=== PATIENT | female | born 1980 | race Caucasian/White ===

== ENCOUNTER → 2018-02-05 | Outpatient (CLI) | payer OTHER ==
[~2018-02-05] MED LIST: BASAGLAR K100 UNIT/1; BASAGLAR K100 UNIT/1 SC; CEPH500 PO; CLIN300 PO; CYCL10 PO; Cipro500 MG PO; Lisinopril2.5 MG; Naprosyn500 MG PO; Norco 5-325 Ta1 EACH PO; Novolog100 UNIT/2 SS; ORTHO MICRONO0.35 MG PO; VITAMIN D50000 UNIT PO; Valium5 MG PO
== END ==
LOC: LAB 15:50
DX: L02.416 Cutaneous abscess of left lower limb (principal)
CPT/HCPCS: 87070; 87075; 87076; 87077; 87205

== ENCOUNTER 2020-07-20 19:01 | Inpatient (IN) | payer OTHER ==
[~2020-07-20] VITALS: Ht 170.2 cm; Wt 106.6 kg
[2020-07-20 19:42] LABS: BASOPHILS ABSOLUTE AUTO 0.04 K/mm3 (0.00-0.23); BASOPHILS PERCENT AUTO 0 % (0-2); EOSINOPHILS ABSOLUTE AUTO 0.04 K/mm3 (0.00-0.68); EOSINOPHILS PERCENT AUTO 0 % (0-6); Hemoglobin 15.1 g/dL (11.5-16.0); IMMATURE GRAN ABSOLUTE AUTO 0.05 K/mm3 (0.00-0.10); IMMATURE GRAN PERCENT AUTO 0 % (0-1); LYMPHOCYTES PERCENT AUTO 23 % (21-46); MONOCYTES PERCENT AUTO 6 % (4-13); Mean Corpuscular HGB 29.4 pg (26.0-34.0); Mean Corpuscular HGB Conc 35.1 g/dL (31.5-36.5); Mean Corpuscular Volume 84 fL (80-100); Mean Platelet Volume 9.9 fL (9.1-12.4); NEUTROPHILS ABSOLUTE AUTO 10.56 K/mm3 (1.96-9.15); NEUTROPHILS PERCENT AUTO 70 % (41-73); Platelet Count 268 K/mm3 (150-400); RDW Coefficient Variation 12.6 % (11.7-14.2); RDW Standard Deviation 38.2 fL (35.1-46.3); Red Blood Cell Count 5.13 M/mm3 (3.80-5.20); White Blood Cell Count 14.99 K/mm3 (4.00-11.30)
[2020-07-20 20:03] LABS: Alanine Aminotransfer (ALT/SGP 41 U/L (12-78); Albumin/Globulin Ratio 0.8 (0.8-1.8); Alk Phos 103 U/L (50-136); Anion Gap 11 mmol/L (6-16); Aspartate Aminotrans (AST/SGOT 11 U/L (12-37); Bilirubin, Total 0.8 mg/dL (0.1-1.0); Blood Urea Nitrogen 8 mg/dL (8-24); Bun/Creatinine Ratio 16.7 (12.0-20.0); CO2, Blood 19 mmol/L (21-32); Calcium, Blood 9.3 mg/dL (8.5-10.1); Chloride, Blood 107 mmol/L (98-108); Creatinine, Blood 0.48 mg/dL (0.40-1.00); Globulin, Blood 4.8 g/dL (2.2-4.0); Glomerular Filtration Rate >60 (60-); Glucose, Blood 215 mg/dL (70-99); Potassium, Blood 3.5 mmol/L (3.5-5.5); Sodium, Blood 137 mmol/L (136-145); Total Protein, Blood 8.8 g/dL (6.4-8.2)
[2020-07-20 20:23] LABS: Source, Urine Clean Catch
[2020-07-20 20:30] LABS: Bilirubin, Urine Neg (Neg); Blood, Urine 3+ (Neg); Glucose Qualitative, Urine 1+ (Neg); Ketones, Urine 1+ (Neg); Leukocyte Esterase, Urine 3+ (Neg); Nitrite, Urine Pos (Neg); Protein, Urine 2+ (Neg); Urobilinogen, Urine NORM (Normal)
[2020-07-20 20:38] LABS: Appearance, Urine Hazy (Clear); Bacteria Many /hpf; Color, Urine Yellow (P-Yellow); Squamous Epithelial Cells Mod /hpf (Few); White Blood Cells, Urine 25-50 /hpf (0-5)
[2020-07-20 20:39] LABS: Mucus Light (0-Heavy)
[2020-07-20 22:06] LABS: International Normalized Ratio 0.97; Prothrombin Time Results 10.4 Sec (9.7-11.5)
[2020-07-21 00:29] LABS: BASOPHILS ABSOLUTE AUTO 0.04 K/mm3 (0.00-0.23); BASOPHILS PERCENT AUTO 0 % (0-2); EOSINOPHILS ABSOLUTE AUTO 0.15 K/mm3 (0.00-0.68); EOSINOPHILS PERCENT AUTO 1 % (0-6); Hematocrit 40.3 % (33.0-51.0); Hemoglobin 13.6 g/dL (11.5-16.0); IMMATURE GRAN ABSOLUTE AUTO 0.04 K/mm3 (0.00-0.10); IMMATURE GRAN PERCENT AUTO 0 % (0-1); LYMPHOCYTES PERCENT AUTO 24 % (21-46); MONOCYTES ABSOLUTE AUTO 0.96 K/mm3 (0.16-1.47); MONOCYTES PERCENT AUTO 8 % (4-13); Mean Corpuscular HGB 29.3 pg (26.0-34.0); Mean Corpuscular HGB Conc 33.7 g/dL (31.5-36.5); Mean Corpuscular Volume 87 fL (80-100); Mean Platelet Volume 9.5 fL (9.1-12.4); NEUTROPHILS ABSOLUTE AUTO 7.66 K/mm3 (1.96-9.15); NEUTROPHILS PERCENT AUTO 66 % (41-73); Platelet Count 232 K/mm3 (150-400); RDW Coefficient Variation 12.8 % (11.7-14.2); RDW Standard Deviation 40.2 fL (35.1-46.3); Red Blood Cell Count 4.64 M/mm3 (3.80-5.20); White Blood Cell Count 11.65 K/mm3 (4.00-11.30)
[2020-07-21 00:42] LABS: Source, Urine Catheter
[2020-07-21 00:48] LABS: Alanine Aminotransfer (ALT/SGP 33 U/L (12-78); Albumin, Blood 3.4 g/dL (3.4-5.0); Albumin/Globulin Ratio 0.9 (0.8-1.8); Alk Phos 92 U/L (50-136); Anion Gap 7 mmol/L (6-16); Aspartate Aminotrans (AST/SGOT 11 U/L (12-37); Bilirubin, Total 0.8 mg/dL (0.1-1.0); Blood Urea Nitrogen 9 mg/dL (8-24); Bun/Creatinine Ratio 13.4 (12.0-20.0); CO2, Blood 25 mmol/L (21-32); Calcium, Blood 8.5 mg/dL (8.5-10.1); Chloride, Blood 109 mmol/L (98-108); Creatinine, Blood 0.67 mg/dL (0.40-1.00); Globulin, Blood 3.9 g/dL (2.2-4.0); Glomerular Filtration Rate >60 (60-); Glucose, Blood 189 mg/dL (70-99); Potassium, Blood 3.5 mmol/L (3.5-5.5); Sodium, Blood 141 mmol/L (136-145); Total Protein, Blood 7.3 g/dL (6.4-8.2)
[2020-07-21 00:51] LABS: Appearance, Urine Cloudy (Clear); Bilirubin, Urine Neg (Neg); Blood, Urine 3+ (Neg); Color, Urine Yellow (P-Yellow); Glucose Qualitative, Urine Neg (Neg); Ketones, Urine 1+ (Neg); Leukocyte Esterase, Urine 3+ (Neg); Nitrite, Urine Pos (Neg); Protein, Urine 2+ (Neg); Specific Gravity, Urine 1.015 (1.003-1.022); Urobilinogen, Urine 1+ (Normal); pH, Urine 6.5 (5.0-8.0)
[2020-07-21 00:56] LABS: Bacteria Many /hpf; Red Blood Cells, Urine 0-2 /hpf (0-2); Squamous Epithelial Cells Few /hpf (Few); White Blood Cells, Urine TNTC /hpf (0-5)
--- NOTE | 2020-07-21 04:19 | NUR ---
SHIFT SUMMARY NEW ADMIT THIS SHIFT. AAOX4. DISCOMFORT CONTROLLED WITH TORADOL X1. NO NAUSEA/EMESIS. SWELLING TO GROIN INCREASED OVER THE LAST 24 HRS. IVF + ABX INFUSING PER ORDERS. LACTIC ACID WNL THIS AM. PT ORIENTED TO ROOM + CALL LIGHT USE. PT RESTING WELL AT THIS TIME WITH CALL LIGHT IN REACH.
--- NOTE | 2020-07-21 09:07 | NUR ---
PT C/O "THICK, SLIMEY, GREEN/BROWN" VAGINAL DISCHARGE-STATES IT WAS ENOUGH TO BE NOTICABLE ON WASHCLOTH. ASSESSMENT DONE, VAGINAL AREA APPEARS SWOLLEN AND RED, TENDER WITH TOUCH. NO DISCHARGE NOTED AT THIS TIME. PT STATES THE PAIN/SWELLING IS WHAT BROUGHT HER TO THE HOSPITAL.
--- NOTE | 2020-07-21 19:09 | NUR ---
SHIFT SUMMARY PT WAS FOUND TO HAVE BLISTER LIKE LESIONS BILATERAL LABIA VERY RED/INFLAMMED/SWOLLEN AT APROX 1300-MD IN ROOM DOING EXAM AT THAT TIME. STI TESTING COLLECTED-AWAITING RESULTS. IV ABX AND PAIN MEDICATION PER EMAR.
--- NOTE | 2020-07-22 04:20 | NUR ---
SHIFT SUMMARY: PT A&O X4. VS WNL. UPON ASSESSMENT, PT NOTED TO HAVE WHITISH LESIONS TO THE INSIDE OF BILATERAL LABIA. LABIA SWOLLEN, RED AND WARM TO TOUCH. PT USING ICE PACK FOR COMFORT. MEDICATED WITH TORADOL PER EMAR. PT REPORTS BURNING POST VOID. ALSO REPORTS URGENCY. URINE YELLOW AND CLOUDY. VOIDING ADEQUATE AMOUNT. IVF AND IV ABX INFUSING PER EMAR. PT CURRENTLY RESTING. AWAITING STD PANEL AND HSV RESULTS.
[2020-07-22 05:33] LABS: BASOPHILS ABSOLUTE AUTO 0.04 K/mm3 (0.00-0.23); BASOPHILS PERCENT AUTO 1 % (0-2); EOSINOPHILS ABSOLUTE AUTO 0.27 K/mm3 (0.00-0.68); EOSINOPHILS PERCENT AUTO 3 % (0-6); Hematocrit 40.2 % (33.0-51.0); Hemoglobin 13.4 g/dL (11.5-16.0); IMMATURE GRAN ABSOLUTE AUTO 0.03 K/mm3 (0.00-0.10); IMMATURE GRAN PERCENT AUTO 0 % (0-1); LYMPHOCYTES ABSOLUTE AUTO 2.09 K/mm3 (0.84-5.20); LYMPHOCYTES PERCENT AUTO 26 % (21-46); MONOCYTES ABSOLUTE AUTO 0.73 K/mm3 (0.16-1.47); MONOCYTES PERCENT AUTO 9 % (4-13); Mean Corpuscular HGB 29.5 pg (26.0-34.0); Mean Corpuscular HGB Conc 33.3 g/dL (31.5-36.5); Mean Corpuscular Volume 89 fL (80-100); Mean Platelet Volume 9.8 fL (9.1-12.4); NEUTROPHILS PERCENT AUTO 61 % (41-73); Platelet Count 211 K/mm3 (150-400); RDW Coefficient Variation 12.4 % (11.7-14.2); RDW Standard Deviation 40.7 fL (35.1-46.3); Red Blood Cell Count 4.54 M/mm3 (3.80-5.20); White Blood Cell Count 8.06 K/mm3 (4.00-11.30)
[2020-07-22 06:04] LABS: Albumin, Blood 2.9 g/dL (3.4-5.0); Anion Gap 7 mmol/L (6-16); Blood Urea Nitrogen 9 mg/dL (8-24); Bun/Creatinine Ratio 15.2 (12.0-20.0); CO2, Blood 24 mmol/L (21-32); Calcium, Blood 8.5 mg/dL (8.5-10.1); Chloride, Blood 110 mmol/L (98-108); Creatinine, Blood 0.59 mg/dL (0.40-1.00); Glomerular Filtration Rate >60 (60-); Glucose, Blood 195 mg/dL (70-99); Phosphorus, Blood 3.9 mg/dL (2.5-4.9); Potassium, Blood 3.7 mmol/L (3.5-5.5); Sodium, Blood 141 mmol/L (136-145)
--- NOTE | 2020-07-22 17:57 | NUR ---
SUMMARY NO ACUTE CHANGES T/O SHIFT. DR RODRIGUEZ IN TO SEE PT THIS EVENING; ORDERS OBTAINED. IV ABX INFUSING PER ORDERS. PROVIDED ICE PACKS T/O SHIFT FOR COMFORT TO DENNIS AREA. MEDICATED PER ORDERS FOR PAIN. COVERED CBGS PER ORDERS. PT INDEPENDENT IN ROOM. CALL LIGHT IN REACH.
--- NOTE | 2020-07-23 05:52 | NUR ---
SHIFT SUMMARY LYING ON LEFT SIDE WITH EYES CLOSED. MEDICATED FOR PAIN PER MD ORDERS. ABLE TO AMBULATE TO COMMODE WITHOUT ASSISTACE. CONTINUES TO HAVE VAGINAL DISCHARGE. DENIES PAIN, DISCOMFORT, OR FURTHER NEEDS AT THIS TIME. SAFETY MEASURES IN PLACE. WILL CONTINUE TO MONITOR AND GIVE HAND OFF TO ONCOMING SHIFT USING SBAR DURING BEDSIDE REPORT.
[2020-07-23 08:11] LABS: HIV SCREEN 4TH GENERATION WRFX Non Reactive (Non Reactive)
--- NOTE | 2020-07-23 19:10 | NUR ---
SUMMARY NO ACUTE CHANGES T/O SHIFT. MEDICATED PER ORDERS FOR PAIN. PT INDEPENDENT IN ROOM. CALL LIGHT IN REACH.
[2020-07-23 21:35] LABS: Vancomycin, Trough 11.6 ug/mL (5.0-10.0)
[2020-07-24 05:10] LABS: CHLAMYDIA BY NAA Negative (Negative); GONOCOCCUS BY NAA Negative (Negative); TRICH VAG BY NAA Negative (Negative)
--- NOTE | 2020-07-24 05:55 | NUR ---
SUMMARY PT VERB EFFECTIVE PAIN CONTROL WITH PO MEDS AND SILVADENE. SLEEPING AT THIS TIME.
--- NOTE | 2020-07-24 17:46 | NUR ---
SUMMARY PT REPORTS PAIN IS CONSIDERABLY LESS THAN WHEN ADMITTED AND IS ADEQUATELY CONTROLLED WITH PO MEDS. PT IS HOPING TO DISCHARGE TO HOME IN AM. WOLF PO FOOD AND FLUIDS WITHOUT NAUSEA
[2020-07-25 05:01] LABS: Hematocrit 43.6 % (33.0-51.0); Hemoglobin 14.3 g/dL (11.5-16.0); Mean Corpuscular HGB 29.2 pg (26.0-34.0); Mean Corpuscular HGB Conc 32.8 g/dL (31.5-36.5); Mean Corpuscular Volume 89 fL (80-100); Mean Platelet Volume 9.6 fL (9.1-12.4); Platelet Count 287 K/mm3 (150-400); RDW Coefficient Variation 12.3 % (11.7-14.2); RDW Standard Deviation 40.6 fL (35.1-46.3); White Blood Cell Count 7.76 K/mm3 (4.00-11.30)
[2020-07-25 05:22] LABS: Anion Gap 4 mmol/L (6-16); Blood Urea Nitrogen 8 mg/dL (8-24); Bun/Creatinine Ratio 16.1 (12.0-20.0); CO2, Blood 24 mmol/L (21-32); Calcium, Blood 8.9 mg/dL (8.5-10.1); Chloride, Blood 110 mmol/L (98-108); Glomerular Filtration Rate >60 (60-); Glucose, Blood 146 mg/dL (70-99); Potassium, Blood 3.8 mmol/L (3.5-5.5); Sodium, Blood 138 mmol/L (136-145)
[2020-07-25 06:02] LABS: BAND PERCENT MAN 1 % (0-8); BASOPHILS PERCENT MAN 0 % (0-2); EOSINOPHILS ABSOLUTE MAN 0.23 K/mm3 (0.00-0.68); EOSINOPHILS PERCENT MAN 3 % (0-6); LYMPHOCYTES % ATYPICAL MANUAL 4 % (0-0); LYMPHOCYTES ABSOLUTE MAN 4.19 K/mm3 (0.84-5.20); LYMPHOCYTES PERCENT MAN 50 % (21-46); MONOCYTES ABSOLUTE MAN 0.31 K/mm3 (0.16-1.47); MONOCYTES PERCENT MAN 4 % (4-13); NEUTROPHILS ABSOLUTE MAN 3.02 K/mm3 (1.96-9.15); SEG NEUTROPHILS PERCENT MAN 38 % (41-73); TOTAL CELLS COUNTED 100
[2020-07-25] MEDS ORDERED: ACET325 PO (08:54)
[2020-07-25] MEDS ORDERED: ACYC200 PO (08:55)
[2020-07-25] MEDS ORDERED: CEFP200 PO (08:55)
[2020-07-25] MEDS ORDERED: IBUP600 PO (08:56)
[2020-07-25] MEDS ORDERED: FAMO20 PO (08:56)
[2020-07-25] MEDS ORDERED: ONDA4ODT PO (08:57)
[2020-07-25] MEDS ORDERED: Silvadene20 GM TOP (08:57)
--- NOTE | 2020-07-25 11:29 | NUR ---
DISCHARGE PT DISCHARGED HOME FROM UNIT AT APROX 1130. PT GIVEN WRITTEN AND VERBAL DISCHARGE INFORMATION AND VERBALIZED UNDERSTANDING OF THESE INSTRUCTIONS. IV REMOVED, PT TOLERATED WELL. NEW PERSCRIPTIONS FAXED TO [facility]. WHEELCHAIR TO CAR.
[2020-07-26 05:09] LABS: HSV-1 DNA Negative (Negative); HSV-2 DNA Positive (Negative)
== END 2020-07-25 11:31 | disposition home or self-care (01) | DRG 872 ==
LOC: ER 19:01 → SURS 21:44 → EDBEDREQ 22:36 → EDBEDREQSVC 22:36 → SURS 23:09
PROVIDERS: Internal Medicine; Obstetrics & Gynecology; Physician Assistant; ADMIT Family Medicine
DX: A41.51 Sepsis due to Escherichia coli [E. coli] (principal); L03.314 Cellulitis of groin; N39.0 Urinary tract infection, site not specified; A60.04 Herpesviral vulvovaginitis; Z20.828 Contact with and (suspected) exposure to other viral communicable diseases; E11.9 Type 2 diabetes mellitus without complications; E66.01 Morbid (severe) obesity due to excess calories; R65.20 Severe sepsis without septic shock; A55 Chlamydial lymphogranuloma (venereum); B95.1 Streptococcus, group B, as the cause of diseases classified elsewhere; Z68.36 Body mass index [BMI] 36.0-36.9, adult; Z87.891 Personal history of nicotine dependence
CPT/HCPCS: 36415; 72193; 80048; 80053; 80069; 80202; 81001; 82947; 83036; 83605; 83690; 85025; 85610; 85730; 86592; 87040; 87070; 87077; 87086; 87147; 87186; 87205; 87389; 87491; 87529; 87591; 87661; 93005; 93010; 96361; 96365; 96375; 99284-25; A9270; A9270-GY; J0133; J0696; J1170; J1650; J1885; J1956; J2405; J3370; J7030; J7050; Q9967

== ENCOUNTER → 2020-09-23 | Outpatient (CLI) | payer OTHER ==
[~2020-09-23] MED LIST changes: +ACET325 PO; +ACYC200 PO; +CEFP200 PO; +FAMO20 PO; +IBUP600 PO; +ONDA4ODT PO; +Silvadene20 GM TOP
[2020-09-24 18:10] LABS: HPV 16 Negative (Negative); HPV 18 Negative (Negative); HPV OTHER HR TYPES Positive (Negative)
== END ==
LOC: LAB SHORT 14:50 → LAB 14:50
PROVIDERS: Obstetrics & Gynecology
DX: Z01.419 Encounter for gynecological examination (general) (routine) without abnormal findings (principal)
CPT/HCPCS: 87624; 87625; G0123

== ENCOUNTER → 2020-10-07 | Outpatient (CLI) | payer OTHER ==
[2020-10-07 12:33] LABS: Source, Urine Clean Catch
[2020-10-07 17:47] LABS: Bilirubin, Urine Neg (Neg); Nitrite, Urine Neg (Neg); Urobilinogen, Urine NORM (Normal)
[2020-10-07 17:51] LABS: Appearance, Urine Cloudy (Clear); Color, Urine Yellow (P-Yellow)
[2020-10-07 18:42] LABS: Specific Gravity, Urine 1.025 (1.003-1.022)
[2020-10-07 18:43] LABS: Blood, Urine 3+ (Neg); Glucose Qualitative, Urine 4+ (Neg); Ketones, Urine 1+ (Neg); Leukocyte Esterase, Urine 3+ (Neg); Protein, Urine 2+ (Neg)
[2020-10-07 18:44] LABS: White Blood Cells, Urine TNTC /hpf (0-5)
[2020-10-07 18:45] LABS: Bacteria Many /hpf; Squamous Epithelial Cells Few /hpf (Few)
== END ==
LOC: LAB SHORT 11:59 → LAB 11:59
PROVIDERS: Obstetrics & Gynecology
DX: N39.3 Stress incontinence (female) (male) (principal)
CPT/HCPCS: 81001; 87077; 87086; 87147; 87186

== ENCOUNTER 2021-12-14 20:42 | Emergency (ER) | payer OTHER ==
[~2021-12-14] VITALS: Ht 167.6 cm; Wt 101.6 kg
[2021-12-14 21:19] LABS: BASOPHILS ABSOLUTE AUTO 0.03 K/mm3 (0.00-0.23); BASOPHILS PERCENT AUTO 0 % (0-2); EOSINOPHILS ABSOLUTE AUTO 0.01 K/mm3 (0.00-0.68); EOSINOPHILS PERCENT AUTO 0 % (0-6); Hematocrit 45.7 % (33.0-51.0); Hemoglobin 16.4 g/dL (11.5-16.0); IMMATURE GRAN ABSOLUTE AUTO 0.07 K/mm3 (0.00-0.10); IMMATURE GRAN PERCENT AUTO 1 % (0-1); LYMPHOCYTES PERCENT AUTO 23 % (21-46); MONOCYTES ABSOLUTE AUTO 0.94 K/mm3 (0.16-1.47); MONOCYTES PERCENT AUTO 6 % (4-13); Mean Corpuscular HGB 29.2 pg (26.0-34.0); Mean Corpuscular HGB Conc 35.9 g/dL (31.5-36.5); Mean Corpuscular Volume 81 fL (80-100); Mean Platelet Volume 9.8 fL (9.1-12.4); NEUTROPHILS ABSOLUTE AUTO 10.75 K/mm3 (1.96-9.15); NEUTROPHILS PERCENT AUTO 70 % (41-73); Platelet Count 367 K/mm3 (150-400); RDW Coefficient Variation 12.7 % (11.7-14.2); RDW Standard Deviation 37.5 fL (35.1-46.3); Red Blood Cell Count 5.62 M/mm3 (3.80-5.20)
[2021-12-14 21:55] LABS: Alanine Aminotransfer (ALT/SGP 34 U/L (12-78); Albumin, Blood 4.5 g/dL (3.4-5.0); Albumin/Globulin Ratio 1.1 (0.8-1.8); Alk Phos 108 U/L (50-136); Anion Gap 13 mmol/L (6-16); Aspartate Aminotrans (AST/SGOT 15 U/L (12-37); Bilirubin, Total 1.2 mg/dL (0.1-1.0); Blood Urea Nitrogen 21 mg/dL (8-24); Bun/Creatinine Ratio 33.5 (12.0-20.0); CO2, Blood 23 mmol/L (21-32); Calcium, Blood 10.4 mg/dL (8.5-10.1); Chloride, Blood 98 mmol/L (98-108); Creatinine, Blood 0.63 mg/dL (0.40-1.00); Globulin, Blood 4.2 g/dL (2.2-4.0); Glomerular Filtration Rate >60 (60-); Glucose, Blood 331 mg/dL (70-99); Potassium, Blood 3.4 mmol/L (3.5-5.5); Sodium, Blood 134 mmol/L (136-145); Total Protein, Blood 8.7 g/dL (6.4-8.2)
[2021-12-14 22:40] LABS: Source, Urine Clean Catch
[2021-12-14 23:16] LABS: Bilirubin, Urine Neg (Neg); Blood, Urine 1+ (Neg); Glucose Qualitative, Urine 4+ (Neg); Ketones, Urine 4+ (Neg); Leukocyte Esterase, Urine 1+ (Neg); Nitrite, Urine Pos (Neg); Protein, Urine 3+ (Neg); Specific Gravity, Urine 1.025 (1.003-1.022); Urobilinogen, Urine 1+ (Normal)
[2021-12-14 23:49] LABS: Appearance, Urine Cloudy (Clear); Color, Urine Yellow (P-Yellow)
[2021-12-14 23:51] LABS: Bacteria Many /hpf; Squamous Epithelial Cells Mod /hpf (Few)
[2021-12-14 23:52] LABS: Mucus Light (0-Heavy)
[2021-12-15] MEDS ORDERED: PROM12.5S PR (00:20)
[2021-12-15] MEDS ORDERED: SULTRIDS PO (00:20)
[2021-12-15] MEDS ORDERED: HUMALOG100 UNIT/1 SC (00:20)
[2021-12-15] MEDS ORDERED: METO10 PO (00:20)
[2021-12-15] MEDS ORDERED: BASAGLAR K100 UNIT/1 SC (00:20)
== END 2021-12-15 00:40 | disposition home or self-care (01) ==
LOC: ER 20:42
PROVIDERS: Physician Assistant; Student in an Organized Health Care Education/Training Program
DX: N12 Tubulo-interstitial nephritis, not specified as acute or chronic (principal); E11.65 Type 2 diabetes mellitus with hyperglycemia; E87.6 Hypokalemia; E86.0 Dehydration; Z88.0 Allergy status to penicillin; F17.210 Nicotine dependence, cigarettes, uncomplicated
CPT/HCPCS: 36415; 74176; 80053; 81001; 82947; 83690; 85025; 87077; 87086; 87186; 96374; 96375; 99284-25; A9270; J1885; J2405; J2765; J7030

== ENCOUNTER 2023-01-14 12:02 | Emergency (ER) | payer OTHER ==
[~2023-01-14] VITALS: Ht 167.6 cm; Wt 99.8 kg
[~2023-01-14 12:02] MED LIST changes: -HUMALOG KW100 UNIT/1 SC; -[UNRECOGNIZED DRUG - SUPPLY]
[2023-01-14 13:00] LABS: BASOPHILS ABSOLUTE AUTO 0.02 K/mm3 (0.00-0.23); BASOPHILS PERCENT AUTO 0 % (0-2); EOSINOPHILS ABSOLUTE AUTO 0.01 K/mm3 (0.00-0.68); EOSINOPHILS PERCENT AUTO 0 % (0-6); Hematocrit 45.8 % (33.0-51.0); Hemoglobin 16.4 g/dL (11.5-16.0); IMMATURE GRAN ABSOLUTE AUTO 0.07 K/mm3 (0.00-0.10); IMMATURE GRAN PERCENT AUTO 0 % (0-1); LYMPHOCYTES ABSOLUTE AUTO 3.21 K/mm3 (0.84-5.20); LYMPHOCYTES PERCENT AUTO 18 % (21-46); MONOCYTES ABSOLUTE AUTO 0.84 K/mm3 (0.16-1.47); MONOCYTES PERCENT AUTO 5 % (4-13); Mean Corpuscular HGB 29.4 pg (26.0-34.0); Mean Corpuscular HGB Conc 35.8 g/dL (31.5-36.5); Mean Corpuscular Volume 82 fL (80-100); Mean Platelet Volume 10.1 fL (9.1-12.4); NEUTROPHILS ABSOLUTE AUTO 13.67 K/mm3 (1.96-9.15); NEUTROPHILS PERCENT AUTO 77 % (41-73); Platelet Count 286 K/mm3 (150-400); RDW Coefficient Variation 12.2 % (11.7-14.2); RDW Standard Deviation 36.5 fL (35.1-46.3); Red Blood Cell Count 5.58 M/mm3 (3.80-5.20); White Blood Cell Count 17.82 K/mm3 (4.00-11.30)
[2023-01-14 13:09] LABS: Albumin, Blood 4.4 g/dL (3.4-5.0); Bilirubin, Total 1.2 mg/dL (0.1-1.0); Bun/Creatinine Ratio 36.7 (12.0-20.0); Calcium, Blood 9.8 mg/dL (8.5-10.1); Creatinine, Blood 0.87 mg/dL (0.40-1.00); Globulin, Blood 4.4 g/dL (2.2-4.0); Magnesium, Blood 2.1 mg/dL (1.6-2.4); Potassium, Blood 3.4 mmol/L (3.5-5.5); Total Protein, Blood 8.8 g/dL (6.4-8.2)
[2023-01-14 13:15] LABS: Influenza A, PCR NEGATIVE (NEGATIVE); Influenza B, PCR NEGATIVE (NEGATIVE); Resp Syncytial Virus, PCR NEGATIVE (NEGATIVE); SARS-Cov-2 (COVID-19) PCR, MMC NEGATIVE (NEGATIVE)
[2023-01-14] MEDS ORDERED: ONDA4 PO (20:34)
[2023-01-14] MEDS ORDERED: HUMALOG KW100 UNIT/1 SC (20:34)
[2023-01-14] MEDS ORDERED: [UNRECOGNIZED DRUG - SUPPLY] (20:34)
== END 2023-01-14 15:49 | disposition left against medical advice (07) ==
LOC: ER 12:02
PROVIDERS: Physician Assistant
DX: R06.02 Shortness of breath (principal); Z53.21 Procedure and treatment not carried out due to patient leaving prior to being seen by health care provider
CPT/HCPCS: 0241U; 36415; 80053; 83690; 83735; 84703; 85025

== ENCOUNTER → 2023-01-14 | Outpatient (CLI) | payer OTHER ==
[~2023-01-14] MED LIST changes: +CIPR500 PO; +HUMALOG KW100 UNIT/1 SC; +HUMALOG100 UNIT/1 SC; +METO10 PO; +ONDA4 PO; +PROM12.5S PR; +SULTRIDS PO; +[UNRECOGNIZED DRUG - SUPPLY]
[2023-01-14 14:57] LABS: BASOPHILS ABSOLUTE AUTO 0.04 K/mm3 (0.00-0.23); BASOPHILS PERCENT AUTO 0 % (0-2); EOSINOPHILS PERCENT AUTO 0 % (0-6); Hematocrit 47.2 % (33.0-51.0); Hemoglobin 16.9 g/dL (11.5-16.0); IMMATURE GRAN ABSOLUTE AUTO 0.09 K/mm3 (0.00-0.10); IMMATURE GRAN PERCENT AUTO 1 % (0-1); LYMPHOCYTES ABSOLUTE AUTO 2.77 K/mm3 (0.84-5.20); LYMPHOCYTES PERCENT AUTO 15 % (21-46); MONOCYTES ABSOLUTE AUTO 0.81 K/mm3 (0.16-1.47); MONOCYTES PERCENT AUTO 4 % (4-13); Mean Corpuscular HGB 29.6 pg (26.0-34.0); Mean Corpuscular HGB Conc 35.8 g/dL (31.5-36.5); Mean Corpuscular Volume 83 fL (80-100); Mean Platelet Volume 10.1 fL (9.1-12.4); NEUTROPHILS ABSOLUTE AUTO 15.29 K/mm3 (1.96-9.15); NEUTROPHILS PERCENT AUTO 80 % (41-73); Platelet Count 316 K/mm3 (150-400); RDW Coefficient Variation 12.6 % (11.7-14.2); RDW Standard Deviation 37.7 fL (35.1-46.3)
[2023-01-14 15:07] LABS: Albumin, Blood 4.7 g/dL (3.4-5.0); Bilirubin, Total 1.2 mg/dL (0.1-1.0); Calcium, Blood 10.3 mg/dL (8.5-10.1); Creatinine, Blood 1.25 mg/dL (0.40-1.00); Globulin, Blood 4.9 g/dL (2.2-4.0); Potassium, Blood 3.4 mmol/L (3.5-5.5); Total Protein, Blood 9.6 g/dL (6.4-8.2)
== END | disposition home or self-care (01) ==
LOC: LAB 14:51 → LAB SHORT 14:51
PROVIDERS: Physician Assistant
DX: R07.9 Chest pain, unspecified (principal)
CPT/HCPCS: 80053; 84484; 85025

== ENCOUNTER 2023-01-19 15:32 | Observation (INO) | payer OTHER ==
[~2023-01-19] VITALS: Ht 167.6 cm; Wt 95.9 kg
[~2023-01-19 15:32] MED LIST changes: +HUMALOG KW100 UNIT/1 SC; +[UNRECOGNIZED DRUG - SUPPLY]
[2023-01-19] MEDS ORDERED: ALOGLIPTIN25 M7 PO (15:57)
[2023-01-19] MEDS ORDERED: ATOR10 PO (15:58)
[2023-01-19] MEDS ORDERED: METO10 PO (15:59)
[2023-01-19 16:06] LABS: Hematocrit 44.8 % (33.0-51.0); Hemoglobin 16.4 g/dL (11.5-16.0); Mean Corpuscular HGB 29.4 pg (26.0-34.0); Mean Corpuscular HGB Conc 36.6 g/dL (31.5-36.5); Mean Corpuscular Volume 80 fL (80-100); Mean Platelet Volume 10.1 fL (9.1-12.4); Platelet Count 350 K/mm3 (150-400); RDW Standard Deviation 35.1 fL (35.1-46.3); Red Blood Cell Count 5.57 M/mm3 (3.80-5.20); White Blood Cell Count 20.61 K/mm3 (4.00-11.30)
[2023-01-19 16:30] LABS: Albumin, Blood 3.9 g/dL (3.4-5.0); Bilirubin, Total 1.1 mg/dL (0.1-1.0); Bun/Creatinine Ratio 32.6 (12.0-20.0); Calcium, Blood 9.6 mg/dL (8.5-10.1); Creatinine, Blood 1.38 mg/dL (0.40-1.00); Globulin, Blood 4.1 g/dL (2.2-4.0); Potassium, Blood 2.2 mmol/L (3.5-5.5)
[2023-01-19 16:33] LABS: BASOPHILS PERCENT MAN 0 % (0-2); EOSINOPHILS PERCENT MAN 1 % (0-6); LYMPHOCYTES ABSOLUTE MAN 7.41 K/mm3 (0.84-5.20); LYMPHOCYTES PERCENT MAN 36 % (21-46); MONOCYTES ABSOLUTE MAN 2.06 K/mm3 (0.16-1.47); MONOCYTES PERCENT MAN 10 % (4-13); NEUTROPHILS ABSOLUTE MAN 10.92 K/mm3 (1.96-9.15); SEG NEUTROPHILS PERCENT MAN 53 % (41-73); TOTAL CELLS COUNTED 100
[2023-01-19 16:46] LABS: Base Excess Venous 1.8 mmol/L; Bicarbonate Venous 25.2 mmol/L (24.0-30.0); PCO2 Venous 33.2 mmHg (38-42); pH Blood Venous 7.49 (7.34-7.37)
[2023-01-19 17:06] LABS: Beta-hydroxybutyrate 17.2 mg/dL (0.2-2.8)
--- NOTE | 2023-01-19 21:00 | NUR ---
ADMIT NOTE; THE PT ARRIVES FROM THE ED VIA ED GURNEY. THE PT IS ABLE TO AMBULATE FROM THE GURNEY TO THE BED WITH A 1 ASSIST. THE PT IS DIZZY UPON AMBULATION. THE PT IS AXO X4, BUT DOES HAVE A CHILD LIKE DEMEANOR AT TIMES. THE PT DENIES ANY PAIN, SOB OR CHEST PAIN/PRESSURE UPON ADMIT. POTASSIUM CHLORIDE IS INFUSING PER EMAR AT THE TIME OF ARRIVAL. THE PT APPEARS TO BE IN NO ACUTE DISTRESS UPON ADMIT. THE PT IS NAUSEOUS, BUT NO VOMITING UPON ADMIT.
--- NOTE | 2023-01-20 01:10 | NUR ---
CALLED ABOUT PTS POTASSIUM LEVEL OF 3.1, ONE TIME ORDER OF 40 MEQS OF POTASSIUM CHLORIDE ORDERED.
--- NOTE | 2023-01-20 04:17 | NUR ---
SHIFT SUMMARY; NO ACUTE CHANGES. THE PT IS AXO 4, CHILD LIKE AT TIMES. THE PT IS INDEPENDENT AT BASELINE BUT IS A 1 ASSIST THIS VISIT DUE TO RECENT SYNCOPAL EPISODES AND CONTINUES WEAKNESS AND DIZZINESS. THE PT HAD NAUSEA, VOMITED ONCE LAST NIGHT AFETR DRINIKING 2-16 OZ ICE ACUNA AND EATING 1/2 JELLO CUP. PHENERGAN GIVEN. TELE IS IN PLACE, NSR-SINUS TACH 90-100'S T/O THE NIGHT. NS AT 150MLS HR IS RUNNING CONCURRENTLY WITH KCL AT 67.5 MLS/HR THROUGH AN IV IN THE L AC. THE PT HAS BEEN SLEEPING ALMOST THE ENTIRE NIGHT. THE PT DENIES ANY PAIN, CHEST PAIN/PRESSURE OR SOB. CURRENTLY THE PT IS SLEEPING IN BED WITH THE BED IN THE LOWEST POSITION AND THE CALL LIGHT AT BEDSIDE.
[2023-01-20 06:05] LABS: BASOPHILS ABSOLUTE AUTO 0.05 K/mm3 (0.00-0.23); BASOPHILS PERCENT AUTO 0 % (0-2); EOSINOPHILS ABSOLUTE AUTO 0.24 K/mm3 (0.00-0.68); EOSINOPHILS PERCENT AUTO 2 % (0-6); Hematocrit 38.9 % (33.0-51.0); Hemoglobin 14.3 g/dL (11.5-16.0); IMMATURE GRAN ABSOLUTE AUTO 0.06 K/mm3 (0.00-0.10); IMMATURE GRAN PERCENT AUTO 1 % (0-1); LYMPHOCYTES ABSOLUTE AUTO 4.86 K/mm3 (0.84-5.20); LYMPHOCYTES PERCENT AUTO 39 % (21-46); MONOCYTES ABSOLUTE AUTO 0.92 K/mm3 (0.16-1.47); MONOCYTES PERCENT AUTO 7 % (4-13); Mean Corpuscular HGB 29.7 pg (26.0-34.0); Mean Corpuscular HGB Conc 36.8 g/dL (31.5-36.5); Mean Corpuscular Volume 81 fL (80-100); Mean Platelet Volume 10.1 fL (9.1-12.4); NEUTROPHILS ABSOLUTE AUTO 6.29 K/mm3 (1.96-9.15); NEUTROPHILS PERCENT AUTO 51 % (41-73); Platelet Count 263 K/mm3 (150-400); RDW Coefficient Variation 12.3 % (11.7-14.2); Red Blood Cell Count 4.81 M/mm3 (3.80-5.20); White Blood Cell Count 12.42 K/mm3 (4.00-11.30)
[2023-01-20 06:27] LABS: Albumin, Blood 3.1 g/dL (3.4-5.0); Albumin/Globulin Ratio 0.9 (0.8-1.8); Bilirubin, Total 0.9 mg/dL (0.1-1.0); Bun/Creatinine Ratio 54.7 (12.0-20.0); Calcium, Blood 8.4 mg/dL (8.5-10.1); Creatinine, Blood 0.68 mg/dL (0.40-1.00); Globulin, Blood 3.3 g/dL (2.2-4.0); Potassium, Blood 3.1 mmol/L (3.5-5.5); Total Protein, Blood 6.4 g/dL (6.4-8.2)
--- NOTE | 2023-01-20 17:12 | NUR ---
SHIFT SUMMARY- PT IS ALERT AND ORIENTED X4. PT CONTINUES TO HAVE N/V. 4 EPISODES OF DIARRHEA BEFORE. PT SHOWERED AND IS NOW RESTING COMFORTABLY. INDEPENDENT IN THE ROOM BUT WEAK. PT KNOWS LIMITATIONS AND WILL CALL WHEN NEEDED. BED IS THE LOWEST POSITION WITH CALL LIGHT IN REACH. PT HAS BEEN TOLORATATING FLUIDS BUT NO FOOD SO FAR
--- NOTE | 2023-01-21 04:35 | NUR ---
SHIFT SUMMARY NOC PT IS A/O X 4. PT DID NOT HAVE C/O N/V DURING SHIFT. PT WAS ABLE TO EAT AT DINNER SO CBG SWITCHED FROM Q6H TO AC/HS PER PROVIDER INSTRUCTIONS AND 2 UNITS WERE INDICATED FOR COVERAGE. PT IS ON TELE RUNNING SINUS RHYTHM @ 84 BPM. PT INDEPENDENT IN ROOM BUT USES CALL LIGHT WHEN AMBULATING TO BATHROOM DUE TO RECENT SYNCOPAL EPISODES. PT MAY DISHCHARGE TODAY IF PT APPETITE CONTINUES TO IMPROVE AND PT POTASSIUM LEVEL INCREASES FROM 3.1 AFTER PO POTASSIUM GIVEN ON 01/20/23. PT IS CURRENTLY RESTING WITH BED IN LOWEST POSITION, AND CALL LIGHT WITHIN REACH. WCTM.
[2023-01-21 05:30] LABS: BASOPHILS ABSOLUTE AUTO 0.06 K/mm3 (0.00-0.23); BASOPHILS PERCENT AUTO 1 % (0-2); EOSINOPHILS ABSOLUTE AUTO 0.27 K/mm3 (0.00-0.68); EOSINOPHILS PERCENT AUTO 3 % (0-6); Hemoglobin 13.3 g/dL (11.5-16.0); IMMATURE GRAN ABSOLUTE AUTO 0.04 K/mm3 (0.00-0.10); IMMATURE GRAN PERCENT AUTO 0 % (0-1); LYMPHOCYTES PERCENT AUTO 53 % (21-46); MONOCYTES ABSOLUTE AUTO 0.71 K/mm3 (0.16-1.47); MONOCYTES PERCENT AUTO 8 % (4-13); Mean Corpuscular HGB 29.8 pg (26.0-34.0); Mean Corpuscular HGB Conc 36.9 g/dL (31.5-36.5); Mean Corpuscular Volume 81 fL (80-100); Mean Platelet Volume 10.3 fL (9.1-12.4); NEUTROPHILS ABSOLUTE AUTO 3.44 K/mm3 (1.96-9.15); NEUTROPHILS PERCENT AUTO 36 % (41-73); Platelet Count 249 K/mm3 (150-400); RDW Coefficient Variation 12.2 % (11.7-14.2); RDW Standard Deviation 35.5 fL (35.1-46.3); Red Blood Cell Count 4.46 M/mm3 (3.80-5.20); White Blood Cell Count 9.52 K/mm3 (4.00-11.30)
[2023-01-21 06:12] LABS: Albumin, Blood 2.8 g/dL (3.4-5.0); Albumin/Globulin Ratio 0.8 (0.8-1.8); Bilirubin, Total 1.1 mg/dL (0.1-1.0); Bun/Creatinine Ratio 38.5 (12.0-20.0); Calcium, Blood 8.4 mg/dL (8.5-10.1); Creatinine, Blood 0.49 mg/dL (0.40-1.00); Globulin, Blood 3.3 g/dL (2.2-4.0); Magnesium, Blood 1.8 mg/dL (1.6-2.4); Phosphorus, Blood 3.1 mg/dL (2.5-4.9); Potassium, Blood 2.9 mmol/L (3.5-5.5); Total Protein, Blood 6.1 g/dL (6.4-8.2)
[2023-01-21] MEDS ORDERED: METO10 PO (12:45)
[2023-01-21] MEDS ORDERED: METF500 PO (12:45)
[2023-01-21] MEDS ORDERED: POTCHL20ER PO (12:46)
--- NOTE | 2023-01-21 15:39 | NUR ---
No acute changes to patient status this shift. Denies N/V, no PRNs given. Patient tolerating PO intake, advanced diet to regular food. MD assessed patient at bedside, started new medication Metformin. IV Potassium infused this shift. Patient walking unit, denies syncope. Ready for discharge. Faxed new meds to pharmacy. Patient left unit at 1500.
== END 2023-01-21 15:10 | disposition home or self-care (01) ==
LOC: ER 15:32 → MEDS 19:10
PROVIDERS: Emergency Medicine; Hospitalist; Student in an Organized Health Care Education/Training Program; ADMIT Internal Medicine
DX: E11.43 Type 2 diabetes mellitus with diabetic autonomic (poly)neuropathy (principal); K31.84 Gastroparesis; N17.9 Acute kidney failure, unspecified; E87.6 Hypokalemia; F17.200 Nicotine dependence, unspecified, uncomplicated; Z88.0 Allergy status to penicillin; Z88.1 Allergy status to other antibiotic agents; Z91.010 Allergy to peanuts
CPT/HCPCS: 36415; 71250; 74176; 80053; 82010; 82803; 82947; 83036; 83690; 83735; 84100; 84132; 85025; 93005; 93010; 96361; 96365; 96366; 96372; 96375; 96376; 99285-25; A9270; G0378; J1650; J1815; J2405; J2550; J3480; J7030; J7050

== ENCOUNTER 2023-10-19 21:49 | Emergency (ER) | payer OTHER ==
[~2023-10-19] VITALS: Ht 167.6 cm; Wt 90.3 kg
[~2023-10-19 21:49] MED LIST changes: +ALOGLIPTIN25 M7 PO; +ATOR10 PO; +METF500 PO; +POTCHL20ER PO
[2023-10-19 22:33] LABS: Source, Urine Clean Catch
[2023-10-19 22:36] LABS: Bilirubin, Urine Neg (Neg); Blood, Urine Neg (Neg); Glucose Qualitative, Urine 4+ (Neg); Ketones, Urine Neg (Neg); Leukocyte Esterase, Urine Neg (Neg); Nitrite, Urine Neg (Neg); Protein, Urine Neg (Neg); Specific Gravity, Urine 1.015 (1.003-1.022); Urobilinogen, Urine NORM (Normal)
[2023-10-19 22:37] LABS: BASOPHILS ABSOLUTE AUTO 0.04 K/mm3 (0.00-0.23); BASOPHILS PERCENT AUTO 0 % (0-2); EOSINOPHILS ABSOLUTE AUTO 0.24 K/mm3 (0.00-0.68); EOSINOPHILS PERCENT AUTO 3 % (0-6); Hematocrit 43.1 % (33.0-51.0); Hemoglobin 14.9 g/dL (11.5-16.0); IMMATURE GRAN ABSOLUTE AUTO 0.02 K/mm3 (0.00-0.10); IMMATURE GRAN PERCENT AUTO 0 % (0-1); LYMPHOCYTES ABSOLUTE AUTO 3.51 K/mm3 (0.84-5.20); LYMPHOCYTES PERCENT AUTO 39 % (21-46); MONOCYTES ABSOLUTE AUTO 0.59 K/mm3 (0.16-1.47); MONOCYTES PERCENT AUTO 7 % (4-13); Mean Corpuscular HGB 29.3 pg (26.0-34.0); Mean Corpuscular HGB Conc 34.6 g/dL (31.5-36.5); Mean Corpuscular Volume 85 fL (80-100); Mean Platelet Volume 9.7 fL (9.1-12.4); NEUTROPHILS ABSOLUTE AUTO 4.68 K/mm3 (1.96-9.15); NEUTROPHILS PERCENT AUTO 52 % (41-73); Platelet Count 310 K/mm3 (150-400); RDW Coefficient Variation 12.7 % (11.7-14.2); RDW Standard Deviation 38.8 fL (35.1-46.3); Red Blood Cell Count 5.09 M/mm3 (3.80-5.20); White Blood Cell Count 9.08 K/mm3 (4.00-11.30)
[2023-10-19 22:58] LABS: Albumin, Blood 3.6 g/dL (3.4-5.0); Albumin/Globulin Ratio 0.8 (0.8-1.8); Bilirubin, Total 0.4 mg/dL (0.1-1.0); Bun/Creatinine Ratio 17.3 (12.0-20.0); Calcium, Blood 9.5 mg/dL (8.5-10.1); Creatinine, Blood 0.87 mg/dL (0.40-1.00); Globulin, Blood 4.7 g/dL (2.2-4.0); Potassium, Blood 4.2 mmol/L (3.5-5.5); Total Protein, Blood 8.3 g/dL (6.4-8.2)
[2023-10-19 23:15] VITALS: BP 132/54
[2023-10-19 23:28] LABS: Appearance, Urine Clear (Clear); Color, Urine Pale Yellow (P-Yellow)
[2023-10-20] MEDS ORDERED: ACET500 PO (01:46)
[2023-10-20] MEDS ORDERED: Ibuprofen600 MG PO (01:46)
== END 2023-10-20 01:52 | disposition home or self-care (01) ==
LOC: ER 21:49
PROVIDERS: Emergency Medicine
DX: S39.012A Strain of muscle, fascia and tendon of lower back, initial encounter (principal); E86.0 Dehydration; E66.9 Obesity, unspecified; E11.9 Type 2 diabetes mellitus without complications; G89.29 Other chronic pain; M54.9 Dorsalgia, unspecified; M54.2 Cervicalgia; F17.210 Nicotine dependence, cigarettes, uncomplicated; Z68.32 Body mass index [BMI] 32.0-32.9, adult; X58.XXXA Exposure to other specified factors, initial encounter; Z88.5 Allergy status to narcotic agent; Z88.0 Allergy status to penicillin; Z79.899 Other long term (current) drug therapy; Z79.84 Long term (current) use of oral hypoglycemic drugs; Z79.4 Long term (current) use of insulin; Z85.72 Personal history of non-Hodgkin lymphomas
CPT/HCPCS: 74177; 80053; 81003; 83690; 85025; 96361; 96374-59; 96375; 99284-25; J1885; J2405; J7030; Q9967

== ENCOUNTER 2023-10-23 19:21 | Emergency (ER) | payer OTHER ==
[~2023-10-23] VITALS: Ht 167.6 cm; Wt 90.3 kg
[2023-10-23 19:30] VITALS: BP 161/88
== END 2023-10-24 00:10 | disposition left against medical advice (07) ==
LOC: ER 19:21
DX: R11.10 Vomiting, unspecified (principal); Z53.21 Procedure and treatment not carried out due to patient leaving prior to being seen by health care provider; R11.2 Nausea with vomiting, unspecified
CPT/HCPCS: 80053; 85025; 96361; 96374; 99281-25; J2405; J7030

== ENCOUNTER → 2023-10-23 | Outpatient (CLI) | payer OTHER ==
[~2023-10-23] MED LIST changes: +ACET500 PO; +Ibuprofen600 MG PO
[2023-10-23 18:35] LABS: BASOPHILS ABSOLUTE AUTO 0.04 K/mm3 (0.00-0.23); BASOPHILS PERCENT AUTO 0 % (0-2); EOSINOPHILS ABSOLUTE AUTO 0.01 K/mm3 (0.00-0.68); EOSINOPHILS PERCENT AUTO 0 % (0-6); Hemoglobin 16.6 g/dL (11.5-16.0); IMMATURE GRAN ABSOLUTE AUTO 0.08 K/mm3 (0.00-0.10); IMMATURE GRAN PERCENT AUTO 1 % (0-1); LYMPHOCYTES ABSOLUTE AUTO 1.38 K/mm3 (0.84-5.20); LYMPHOCYTES PERCENT AUTO 12 % (21-46); MONOCYTES ABSOLUTE AUTO 0.16 K/mm3 (0.16-1.47); MONOCYTES PERCENT AUTO 1 % (4-13); Mean Corpuscular HGB 29.6 pg (26.0-34.0); Mean Corpuscular HGB Conc 35.3 g/dL (31.5-36.5); Mean Corpuscular Volume 84 fL (80-100); Mean Platelet Volume 9.9 fL (9.1-12.4); NEUTROPHILS ABSOLUTE AUTO 10.27 K/mm3 (1.96-9.15); NEUTROPHILS PERCENT AUTO 86 % (41-73); Platelet Count 313 K/mm3 (150-400); RDW Coefficient Variation 12.8 % (11.7-14.2); RDW Standard Deviation 38.9 fL (35.1-46.3); Red Blood Cell Count 5.61 M/mm3 (3.80-5.20); White Blood Cell Count 11.94 K/mm3 (4.00-11.30)
[2023-10-23 18:43] LABS: Albumin, Blood 4.3 g/dL (3.4-5.0); Albumin/Globulin Ratio 0.9 (0.8-1.8); Bilirubin, Total 0.8 mg/dL (0.1-1.0); Bun/Creatinine Ratio 14.5 (12.0-20.0); Calcium, Blood 9.7 mg/dL (8.5-10.1); Creatinine, Blood 0.76 mg/dL (0.40-1.00); Globulin, Blood 4.7 g/dL (2.2-4.0); Potassium, Blood 4.3 mmol/L (3.5-5.5)
== END | disposition home or self-care (01) ==
LOC: LAB 18:28 → LAB SHORT 18:28
PROVIDERS: Physician Assistant Medical
DX: R11.2 Nausea with vomiting, unspecified (principal)
CPT/HCPCS: 80053; 85025

== ENCOUNTER 2023-10-24 15:41 | Emergency (ER) | payer OTHER ==
[~2023-10-24] VITALS: Ht 167.6 cm; Wt 90.3 kg
[2023-10-24 15:53] VITALS: BP 125/75
[2023-10-24 16:21] LABS: Base Excess Venous -10.3 mmol/L; Bicarbonate Venous 16.7 mmol/L (24.0-30.0); PCO2 Venous 34.6 mmHg (38-42); pH Blood Venous 7.28 (7.34-7.37)
[2023-10-24 16:26] LABS: BASOPHILS ABSOLUTE AUTO 0.03 K/mm3 (0.00-0.23); BASOPHILS PERCENT AUTO 0 % (0-2); EOSINOPHILS PERCENT AUTO 0 % (0-6); Hematocrit 44.6 % (33.0-51.0); Hemoglobin 14.7 g/dL (11.5-16.0); IMMATURE GRAN ABSOLUTE AUTO 0.13 K/mm3 (0.00-0.10); IMMATURE GRAN PERCENT AUTO 1 % (0-1); LYMPHOCYTES ABSOLUTE AUTO 2.16 K/mm3 (0.84-5.20); LYMPHOCYTES PERCENT AUTO 13 % (21-46); MONOCYTES ABSOLUTE AUTO 0.76 K/mm3 (0.16-1.47); MONOCYTES PERCENT AUTO 5 % (4-13); Mean Corpuscular HGB 28.8 pg (26.0-34.0); Mean Corpuscular Volume 87 fL (80-100); Mean Platelet Volume 9.8 fL (9.1-12.4); NEUTROPHILS ABSOLUTE AUTO 13.35 K/mm3 (1.96-9.15); NEUTROPHILS PERCENT AUTO 81 % (41-73); Platelet Count 333 K/mm3 (150-400); RDW Coefficient Variation 13.2 % (11.7-14.2); RDW Standard Deviation 42.5 fL (35.1-46.3); Red Blood Cell Count 5.11 M/mm3 (3.80-5.20); White Blood Cell Count 16.43 K/mm3 (4.00-11.30)
[2023-10-24 17:23] LABS: Albumin, Blood 3.9 g/dL (3.4-5.0); Albumin/Globulin Ratio 0.8 (0.8-1.8); Beta-hydroxybutyrate 45.7 mg/dL (0.2-2.8); Bilirubin, Total 0.7 mg/dL (0.1-1.0); Bun/Creatinine Ratio 26.9 (12.0-20.0); Calcium, Blood 9.3 mg/dL (8.5-10.1); Creatinine, Blood 0.63 mg/dL (0.40-1.00); Globulin, Blood 4.8 g/dL (2.2-4.0); Potassium, Blood 4.1 mmol/L (3.5-5.5); Total Protein, Blood 8.7 g/dL (6.4-8.2)
== END 2023-10-24 23:02 | disposition left against medical advice (07) ==
LOC: ER 15:41
PROVIDERS: Physician Assistant
DX: E11.65 Type 2 diabetes mellitus with hyperglycemia (principal); Z53.21 Procedure and treatment not carried out due to patient leaving prior to being seen by health care provider
CPT/HCPCS: 80053; 82010; 82803; 85025; 99283

== ENCOUNTER → 2023-10-24 | Outpatient (CLI) | payer OTHER ==
[2023-10-24 14:02] LABS: BASOPHILS ABSOLUTE AUTO 0.03 K/mm3 (0.00-0.23); BASOPHILS PERCENT AUTO 0 % (0-2); EOSINOPHILS PERCENT AUTO 0 % (0-6); Hemoglobin 16.1 g/dL (11.5-16.0); IMMATURE GRAN ABSOLUTE AUTO 0.15 K/mm3 (0.00-0.10); IMMATURE GRAN PERCENT AUTO 1 % (0-1); LYMPHOCYTES ABSOLUTE AUTO 2.26 K/mm3 (0.84-5.20); LYMPHOCYTES PERCENT AUTO 14 % (21-46); MONOCYTES ABSOLUTE AUTO 0.73 K/mm3 (0.16-1.47); MONOCYTES PERCENT AUTO 4 % (4-13); Mean Corpuscular HGB 29.4 pg (26.0-34.0); Mean Corpuscular HGB Conc 34.3 g/dL (31.5-36.5); Mean Corpuscular Volume 86 fL (80-100); Mean Platelet Volume 9.7 fL (9.1-12.4); NEUTROPHILS ABSOLUTE AUTO 13.36 K/mm3 (1.96-9.15); NEUTROPHILS PERCENT AUTO 81 % (41-73); Platelet Count 349 K/mm3 (150-400); RDW Coefficient Variation 13.4 % (11.7-14.2); RDW Standard Deviation 41.3 fL (35.1-46.3); Red Blood Cell Count 5.48 M/mm3 (3.80-5.20); White Blood Cell Count 16.53 K/mm3 (4.00-11.30)
[2023-10-24 14:28] LABS: Albumin, Blood 4.4 g/dL (3.4-5.0); Albumin/Globulin Ratio 0.9 (0.8-1.8); Bilirubin, Total 0.7 mg/dL (0.1-1.0); Bun/Creatinine Ratio 13.4 (12.0-20.0); Calcium, Blood 9.6 mg/dL (8.5-10.1); Creatinine, Blood 1.19 mg/dL (0.40-1.00); Globulin, Blood 4.9 g/dL (2.2-4.0); Potassium, Blood 3.8 mmol/L (3.5-5.5); Total Protein, Blood 9.3 g/dL (6.4-8.2)
== END | disposition home or self-care (01) ==
LOC: LAB 13:56 → LAB SHORT 13:56
PROVIDERS: Physician Assistant Medical
DX: R73.9 Hyperglycemia, unspecified (principal)
CPT/HCPCS: 80053; 82010; 85025

== ENCOUNTER 2023-10-29 20:37 | Emergency (ER) | payer OTHER ==
[~2023-10-29] VITALS: Ht 167.6 cm; Wt 90.7 kg
[2023-10-29 21:08] LABS: BASOPHILS ABSOLUTE AUTO 0.08 K/mm3 (0.00-0.23); BASOPHILS PERCENT AUTO 1 % (0-2); EOSINOPHILS PERCENT AUTO 1 % (0-6); Hematocrit 46.4 % (33.0-51.0); Hemoglobin 16.7 g/dL (11.5-16.0); IMMATURE GRAN ABSOLUTE AUTO 0.06 K/mm3 (0.00-0.10); IMMATURE GRAN PERCENT AUTO 0 % (0-1); LYMPHOCYTES ABSOLUTE AUTO 4.79 K/mm3 (0.84-5.20); LYMPHOCYTES PERCENT AUTO 34 % (21-46); MONOCYTES ABSOLUTE AUTO 0.88 K/mm3 (0.16-1.47); MONOCYTES PERCENT AUTO 6 % (4-13); Mean Corpuscular HGB 29.1 pg (26.0-34.0); Mean Corpuscular Volume 81 fL (80-100); Mean Platelet Volume 9.9 fL (9.1-12.4); NEUTROPHILS ABSOLUTE AUTO 8.16 K/mm3 (1.96-9.15); NEUTROPHILS PERCENT AUTO 58 % (41-73); Platelet Count 332 K/mm3 (150-400); RDW Coefficient Variation 12.4 % (11.7-14.2); Red Blood Cell Count 5.74 M/mm3 (3.80-5.20); White Blood Cell Count 14.07 K/mm3 (4.00-11.30)
[2023-10-29 21:30] LABS: Albumin, Blood 3.8 g/dL (3.4-5.0); Albumin/Globulin Ratio 0.9 (0.8-1.8); Bilirubin, Total 1.1 mg/dL (0.1-1.0); Bun/Creatinine Ratio 44.5 (12.0-20.0); Calcium, Blood 9.1 mg/dL (8.5-10.1); Creatinine, Blood 0.85 mg/dL (0.40-1.00); Globulin, Blood 4.3 g/dL (2.2-4.0); Potassium, Blood 3.1 mmol/L (3.5-5.5); Total Protein, Blood 8.1 g/dL (6.4-8.2)
[2023-10-29 23:15] LABS: Source, Urine Voided
[2023-10-29 23:21] LABS: Appearance, Urine Hazy (Clear); Bilirubin, Urine Neg (Neg); Blood, Urine 2+ (Neg); Color, Urine Yellow (P-Yellow); Glucose Qualitative, Urine 4+ (Neg); Ketones, Urine 2+ (Neg); Leukocyte Esterase, Urine 2+ (Neg); Nitrite, Urine Neg (Neg); Protein, Urine 1+ (Neg); Specific Gravity, Urine 1.015 (1.003-1.022); Urobilinogen, Urine 1+ (Normal)
[2023-10-29 23:41] LABS: Bacteria Many /hpf; Red Blood Cells, Urine 0-2 /hpf (0-2); Squamous Epithelial Cells Few /hpf (Few); White Blood Cells, Urine 50-100 /hpf (0-5)
[2023-10-30] MEDS ORDERED: ONDA4ODT MM (00:03)
[2023-10-30] MEDS ORDERED: CEPH500 PO (00:03)
[2023-10-30 00:30] VITALS: BP 146/48
== END 2023-10-30 00:52 | disposition home or self-care (01) ==
LOC: ER 20:37
PROVIDERS: Emergency Medicine; Physician Assistant
DX: R11.2 Nausea with vomiting, unspecified (principal); N39.0 Urinary tract infection, site not specified; E11.65 Type 2 diabetes mellitus with hyperglycemia; F17.210 Nicotine dependence, cigarettes, uncomplicated; Z79.4 Long term (current) use of insulin; Z79.84 Long term (current) use of oral hypoglycemic drugs; Z79.899 Other long term (current) drug therapy
CPT/HCPCS: 76705; 80053; 81001; 83690; 85025; 96361; 96365; 96375; 99284-25; J0696; J2405; J7030

== ENCOUNTER → 2023-11-21 | Outpatient (CLI) | payer OTHER ==
[~2023-11-21] MED LIST changes: +ONDA4ODT MM
[2023-11-22 18:09] LABS: HEPATITIS C AB CIA INTERP Negative (Negative); HEPATITIS C ANTIBODY CIA INDEX 0.18 IV
[2023-11-22 19:54] LABS: HIV 1,2 COMBO ANTIGEN/ANTIBODY Negative (Negative)
[2023-11-23 11:10] LABS: HEMOGLOBIN A1C 12.6 % (4.8-5.6)
== END | disposition home or self-care (01) ==
LOC: LAB SHORT 09:46 → LAB 09:46
PROVIDERS: Family Medicine
DX: Z11.4 Encounter for screening for human immunodeficiency virus [HIV] (principal); Z11.59 Encounter for screening for other viral diseases; E11.65 Type 2 diabetes mellitus with hyperglycemia; Z79.4 Long term (current) use of insulin
CPT/HCPCS: 36415; 83036; 86803; 87389

== ENCOUNTER 2024-06-12 15:42 | Emergency (ER) | payer OTHER ==
[~2024-06-12] VITALS: Ht 167.6 cm; Wt 106.6 kg
[2024-06-12 17:02] LABS: Source, Urine Straight Cath
[2024-06-12 17:06] LABS: Appearance, Urine Clear (Clear); Bilirubin, Urine Neg (Neg); Blood, Urine 3+ (Neg); Glucose Qualitative, Urine 4+ (Neg); Ketones, Urine Neg (Neg); Leukocyte Esterase, Urine 2+ (Neg); Nitrite, Urine Neg (Neg); Protein, Urine Neg (Neg); Specific Gravity, Urine 1.015 (1.003-1.022); Urobilinogen, Urine NORM (Normal)
[2024-06-12 17:16] LABS: BASOPHILS ABSOLUTE AUTO 0.04 K/mm3 (0.00-0.23); BASOPHILS PERCENT AUTO 1 % (0-2); EOSINOPHILS ABSOLUTE AUTO 0.26 K/mm3 (0.00-0.68); EOSINOPHILS PERCENT AUTO 3 % (0-6); Hematocrit 40.9 % (33.0-51.0); IMMATURE GRAN ABSOLUTE AUTO 0.03 K/mm3 (0.00-0.10); IMMATURE GRAN PERCENT AUTO 0 % (0-1); LYMPHOCYTES ABSOLUTE AUTO 3.37 K/mm3 (0.84-5.20); LYMPHOCYTES PERCENT AUTO 43 % (21-46); MONOCYTES ABSOLUTE AUTO 0.37 K/mm3 (0.16-1.47); MONOCYTES PERCENT AUTO 5 % (4-13); Mean Corpuscular HGB 28.5 pg (26.0-34.0); Mean Corpuscular HGB Conc 34.2 g/dL (31.5-36.5); Mean Corpuscular Volume 83 fL (80-100); Mean Platelet Volume 9.9 fL (9.1-12.4); NEUTROPHILS ABSOLUTE AUTO 3.77 K/mm3 (1.96-9.15); NEUTROPHILS PERCENT AUTO 48 % (41-73); Platelet Count 239 K/mm3 (150-400); RDW Coefficient Variation 13.1 % (11.7-14.2); RDW Standard Deviation 39.6 fL (35.1-46.3); Red Blood Cell Count 4.91 M/mm3 (3.80-5.20); White Blood Cell Count 7.84 K/mm3 (4.00-11.30)
[2024-06-12 17:18] LABS: Color, Urine Pale Yellow (P-Yellow)
[2024-06-12 17:19] LABS: Bacteria Few /hpf; Squamous Epithelial Cells Few /hpf (Few)
[2024-06-12 17:46] LABS: Albumin, Blood 3.8 g/dL (3.4-5.0); Albumin/Globulin Ratio 0.9 (0.8-1.8); Bilirubin, Total 0.3 mg/dL (0.1-1.0); Bun/Creatinine Ratio 30.3 (12.0-20.0); Creatinine, Blood 0.56 mg/dL (0.40-1.00); Globulin, Blood 4.1 g/dL (2.2-4.0); Potassium, Blood 3.6 mmol/L (3.5-5.5); Total Protein, Blood 7.9 g/dL (6.4-8.2)
[2024-06-12] MEDS ORDERED: Macrobid 100 M100 MG PO (19:28)
[2024-06-12 19:39] VITALS: BP 152/91
== END 2024-06-12 19:40 | disposition home or self-care (01) ==
LOC: ER 15:42
PROVIDERS: Emergency Medicine
DX: R31.9 Hematuria, unspecified (principal); E11.9 Type 2 diabetes mellitus without complications; F17.210 Nicotine dependence, cigarettes, uncomplicated; Z79.4 Long term (current) use of insulin; Z79.84 Long term (current) use of oral hypoglycemic drugs; Z79.899 Other long term (current) drug therapy; Z88.0 Allergy status to penicillin; Z88.5 Allergy status to narcotic agent
CPT/HCPCS: 74177; 76830; 76856; 80053; 81001; 85025; 87086; 99284-25; Q9967

== ENCOUNTER → 2025-01-16 | Outpatient (CLI) | payer OTHER ==
[~2025-01-16] MED LIST changes: +DICY20 PO; +LYBALVI PO; +Macrobid 100 M100 MG PO; +PROMETHAZINE12.5 M1 PO; +Prozac40 MG PO; +ROSUVASTATIN CA10 MG PO; +STEGLATRO15 MG PO
[2025-01-16 18:51] LABS: BASOPHILS ABSOLUTE AUTO 0.09 K/mm3 (0.00-0.23); BASOPHILS PERCENT AUTO 1 % (0-2); EOSINOPHILS ABSOLUTE AUTO 0.12 K/mm3 (0.00-0.68); EOSINOPHILS PERCENT AUTO 1 % (0-6); Hematocrit 47.1 % (33.0-51.0); IMMATURE GRAN ABSOLUTE AUTO 0.05 K/mm3 (0.00-0.10); IMMATURE GRAN PERCENT AUTO 0 % (0-1); LYMPHOCYTES ABSOLUTE AUTO 2.05 K/mm3 (0.84-5.20); LYMPHOCYTES PERCENT AUTO 13 % (21-46); MONOCYTES ABSOLUTE AUTO 0.46 K/mm3 (0.16-1.47); MONOCYTES PERCENT AUTO 3 % (4-13); Mean Corpuscular HGB 28.7 pg (26.0-34.0); Mean Corpuscular Volume 84 fL (80-100); Mean Platelet Volume 9.7 fL (9.1-12.4); NEUTROPHILS ABSOLUTE AUTO 12.58 K/mm3 (1.96-9.15); NEUTROPHILS PERCENT AUTO 82 % (41-73); Platelet Count 272 K/mm3 (150-400); RDW Coefficient Variation 12.6 % (11.7-14.2); RDW Standard Deviation 38.6 fL (35.1-46.3); Red Blood Cell Count 5.58 M/mm3 (3.80-5.20); White Blood Cell Count 15.35 K/mm3 (4.00-11.30)
[2025-01-16 19:01] LABS: Albumin, Blood 4.5 g/dL (3.4-5.0); Bilirubin, Total 0.9 mg/dL (0.1-1.0); Calcium, Blood 9.7 mg/dL (8.5-10.1); Creatinine, Blood 0.94 mg/dL (0.40-1.00); Globulin, Blood 4.6 g/dL (2.2-4.0); Potassium, Blood 3.9 mmol/L (3.5-5.5); Total Protein, Blood 9.1 g/dL (6.4-8.2)
== END | disposition home or self-care (01) ==
LOC: LAB 18:46 → LAB SHORT 18:46
PROVIDERS: Emergency Medicine
DX: R11.10 Vomiting, unspecified (principal)
CPT/HCPCS: 80053; 83690; 85025

== ENCOUNTER 2025-01-18 18:17 | Emergency (ER) | payer OTHER ==
[~2025-01-18] VITALS: Ht 167.6 cm; Wt 102.5 kg
[~2025-01-18 18:17] MED LIST changes: -DICY20 PO; -LYBALVI PO; -PROMETHAZINE12.5 M1 PO; -Prozac40 MG PO; -ROSUVASTATIN CA10 MG PO; -STEGLATRO15 MG PO
[2025-01-18] MEDS ORDERED: NS 1,000 ML IV SCH ×2 (18:50→22:45)
[2025-01-18] MEDS ORDERED: Ondansetron HCl 2 MG / ML 2ML Vial IV ONE (18:50)
[2025-01-18] MEDS ORDERED: Metoclopramide HCl 5MG / ML 2ML Vial IV ONE (18:55)
[2025-01-18] MEDS ORDERED: DiphenhydrAMINE HCl 50 MG/ML 1ML Vial IV ONE (18:55)
[2025-01-18 19:52] LABS: BASOPHILS ABSOLUTE AUTO 0.05 K/mm3 (0.00-0.23); BASOPHILS PERCENT AUTO 0 % (0-2); EOSINOPHILS ABSOLUTE AUTO 0.01 K/mm3 (0.00-0.68); EOSINOPHILS PERCENT AUTO 0 % (0-6); Hematocrit 48.3 % (33.0-51.0); Hemoglobin 16.7 g/dL (11.5-16.0); IMMATURE GRAN ABSOLUTE AUTO 0.07 K/mm3 (0.00-0.10); IMMATURE GRAN PERCENT AUTO 0 % (0-1); LYMPHOCYTES ABSOLUTE AUTO 3.13 K/mm3 (0.84-5.20); LYMPHOCYTES PERCENT AUTO 18 % (21-46); MONOCYTES PERCENT AUTO 5 % (4-13); Mean Corpuscular HGB Conc 34.6 g/dL (31.5-36.5); Mean Corpuscular Volume 84 fL (80-100); Mean Platelet Volume 9.7 fL (9.1-12.4); NEUTROPHILS ABSOLUTE AUTO 13.54 K/mm3 (1.96-9.15); NEUTROPHILS PERCENT AUTO 76 % (41-73); Platelet Count 282 K/mm3 (150-400); RDW Coefficient Variation 12.7 % (11.7-14.2); RDW Standard Deviation 38.6 fL (35.1-46.3); Red Blood Cell Count 5.76 M/mm3 (3.80-5.20)
[2025-01-18 20:10] LABS: Albumin, Blood 4.4 g/dL (3.4-5.0); Albumin/Globulin Ratio 0.9 (0.8-1.8); Calcium, Blood 10.1 mg/dL (8.5-10.1); Creatinine, Blood 0.94 mg/dL (0.40-1.00); Globulin, Blood 4.8 g/dL (2.2-4.0); Potassium, Blood 3.3 mmol/L (3.5-5.5); Total Protein, Blood 9.2 g/dL (6.4-8.2)
[2025-01-18] MEDS ORDERED: Potassium Chloride 20 MEQ TabCR PO ONE (21:15)
[2025-01-18] MEDS ORDERED: Magnesium Oxide 400 MG Tab PO ONE (21:15)
[2025-01-18 21:50] LABS: Base Excess Venous -0.1 mmol/L; Bicarbonate Venous 24.7 mmol/L (24.0-30.0); PCO2 Venous 36.5 mmHg (38-42); pH Blood Venous 7.43 (7.34-7.37)
[2025-01-18 21:57] LABS: Source, Urine Clean Catch
[2025-01-18 22:16] LABS: Beta-hydroxybutyrate 41.8 mg/dL (0.2-2.8)
[2025-01-18 22:20] LABS: Bilirubin, Urine Neg (Neg); Blood, Urine 1+ (Neg); Glucose Qualitative, Urine 4+ (Neg); Ketones, Urine 4+ (Neg); Leukocyte Esterase, Urine 1+ (Neg); Nitrite, Urine Neg (Neg); Protein, Urine 3+ (Neg); Specific Gravity, Urine 1.015 (1.003-1.022); Urobilinogen, Urine NORM (Normal)
[2025-01-18 22:29] LABS: Appearance, Urine Hazy (Clear); Color, Urine Yellow (P-Yellow)
[2025-01-18 22:30] LABS: Bacteria Mod /hpf; Red Blood Cells, Urine 0-2 /hpf (0-2); Squamous Epithelial Cells Mod /hpf (Few); White Blood Cells, Urine 25-50 /hpf (0-5); Yeast/Fungi Urine Mod /hpf
[2025-01-18] MEDS ORDERED: Droperidol 5 mg/2 ml Vial IV ONE (22:45)
[2025-01-18] MEDS ORDERED: Haloperidol Lactate Inj. 5 MG/ML Injection IV ONE (22:55)
[2025-01-18 23:00] VITALS: BP 149/96
[2025-01-19] MEDS ORDERED: ONDA4 PO (00:21)
[2025-01-19] MEDS ORDERED: METO10 PO (00:21)
[2025-01-19] MEDS ORDERED: DICY20 PO (00:21)
[2025-01-19] MEDS ORDERED: Prozac40 MG PO (21:54)
[2025-01-19] MEDS ORDERED: LYBALVI PO (21:54)
[2025-01-19] MEDS ORDERED: STEGLATRO15 MG PO (21:55)
== END 2025-01-19 00:31 | disposition home or self-care (01) ==
LOC: ER 18:17
PROVIDERS: Emergency Medicine
DX: R11.2 Nausea with vomiting, unspecified (principal); E11.9 Type 2 diabetes mellitus without complications; F17.210 Nicotine dependence, cigarettes, uncomplicated; Z88.0 Allergy status to penicillin; Z91.010 Allergy to peanuts; Z88.5 Allergy status to narcotic agent; Z79.899 Other long term (current) drug therapy; Z79.84 Long term (current) use of oral hypoglycemic drugs; Z79.4 Long term (current) use of insulin; Z79.2 Long term (current) use of antibiotics
CPT/HCPCS: 80053; 81001; 82010; 82803; 83690; 83735; 85025; 96361; 96374; 96375; 99284-25; A9270; J1200; J1630; J1790; J2405; J2765; J7030

== ENCOUNTER 2025-01-19 17:08 | Inpatient (IN) | payer OTHER ==
[~2025-01-19] VITALS: Ht 162.6 cm; Wt 97.0 kg
[~2025-01-19 17:08] MED LIST changes: +DICY20 PO
[2025-01-19 17:33] LABS: BASOPHILS ABSOLUTE AUTO 0.05 K/mm3 (0.00-0.23); BASOPHILS PERCENT AUTO 0 % (0-2); EOSINOPHILS ABSOLUTE AUTO 0.02 K/mm3 (0.00-0.68); EOSINOPHILS PERCENT AUTO 0 % (0-6); Hematocrit 43.6 % (33.0-51.0); Hemoglobin 15.1 g/dL (11.5-16.0); IMMATURE GRAN ABSOLUTE AUTO 0.04 K/mm3 (0.00-0.10); IMMATURE GRAN PERCENT AUTO 0 % (0-1); LYMPHOCYTES ABSOLUTE AUTO 3.31 K/mm3 (0.84-5.20); LYMPHOCYTES PERCENT AUTO 25 % (21-46); MONOCYTES ABSOLUTE AUTO 0.76 K/mm3 (0.16-1.47); MONOCYTES PERCENT AUTO 6 % (4-13); Mean Corpuscular HGB 29.4 pg (26.0-34.0); Mean Corpuscular HGB Conc 34.6 g/dL (31.5-36.5); Mean Corpuscular Volume 85 fL (80-100); Mean Platelet Volume 9.6 fL (9.1-12.4); NEUTROPHILS PERCENT AUTO 69 % (41-73); Platelet Count 260 K/mm3 (150-400); RDW Coefficient Variation 12.6 % (11.7-14.2); RDW Standard Deviation 38.6 fL (35.1-46.3); Red Blood Cell Count 5.14 M/mm3 (3.80-5.20); White Blood Cell Count 13.38 K/mm3 (4.00-11.30)
[2025-01-19] MEDS ORDERED: Haloperidol 1 MG Tab PO ONE (17:45)
[2025-01-19 17:48] LABS: Albumin, Blood 3.7 g/dL (3.4-5.0); Albumin/Globulin Ratio 0.9 (0.8-1.8); Bilirubin, Total 0.9 mg/dL (0.1-1.0); Bun/Creatinine Ratio 34.4 (12.0-20.0); Calcium, Blood 8.8 mg/dL (8.5-10.1); Creatinine, Blood 0.61 mg/dL (0.40-1.00); Potassium, Blood 3.5 mmol/L (3.5-5.5); Total Protein, Blood 7.7 g/dL (6.4-8.2)
[2025-01-19] MEDS ORDERED: NS 1,000 ML IV SCH (18:10)
[2025-01-19 19:10] LABS: Source, Urine Straight Cath
[2025-01-19 19:14] LABS: Appearance, Urine Hazy (Clear); Bilirubin, Urine Neg (Neg); Blood, Urine 1+ (Neg); Glucose Qualitative, Urine 4+ (Neg); Ketones, Urine 4+ (Neg); Leukocyte Esterase, Urine 2+ (Neg); Nitrite, Urine Neg (Neg); Protein, Urine 2+ (Neg); Urobilinogen, Urine NORM (Normal)
[2025-01-19 19:26] LABS: Color, Urine Pale Yellow (P-Yellow)
[2025-01-19 19:27] LABS: Bacteria Mod /hpf; Hyaline Casts 0-2 /lpf (0-2); White Blood Cells, Urine 25-50 /hpf (0-5); Yeast/Fungi Urine Mod /hpf
[2025-01-19 19:28] LABS: Red Blood Cells, Urine 0-2 /hpf (0-2); Squamous Epithelial Cells Not Seen /hpf (Few); Transitional Epithelial Cells Rare /hpf (0-Rare)
[2025-01-19 19:31] LABS: Base Excess Venous -5.3 mmol/L; Bicarbonate Venous 21.3 mmol/L (24.0-30.0); PCO2 Venous 28.2 mmHg (38-42); pH Blood Venous 7.44 (7.34-7.37)
[2025-01-19] MEDS ORDERED: CefTRIAXone Sodium 1,000 MG in NS 100 ML IV ONE (19:45)
[2025-01-19 20:44] LABS: U Amphetamine Screen Not Detected; U Barbituate Screen Not Detected; U Benzodiazapine Screen Not Detected; U Buprenorphine Screen Not Detected; U Cannabinoids Screen DETECTED; U Cocaine Screen Not Detected; U Methadone Screen Not Detected; U Methamphetamine Screen Not Detected; U Opiates Screen Not Detected; U Oxycodone Screen Not Detected; U Phencyclidine Screen Not Detected
[2025-01-19] MEDS ORDERED: D5W-1/2NS 1,000 ML IV SCH (20:45)
[2025-01-19] MEDS ORDERED: Metoclopramide HCl 5MG / ML 2ML Vial IV PRN (20:45)
[2025-01-19] MEDS ORDERED: Ondansetron HCl 2 MG / ML 2ML Vial IV PRN (20:45)
[2025-01-19] MEDS ORDERED: Magnesium Sulf 2 GM/Water 50ML 50 ML IV STA (20:48)
[2025-01-19] MEDS ORDERED: Lactated Ringer's 1,000 ML IV ONE (20:50)
[2025-01-19] MEDS ORDERED: Morphine Sulfate 4 MG/1 ML Injection IV PRN (20:50)
[2025-01-19] MEDS ORDERED: Lactobacil 2-S.Thermo-Bifido 1 1 Cap PO SCH (21:00)
[2025-01-19] MEDS ORDERED: Ketorolac Tromethamine 15mg Vial IV ONE (21:00)
[2025-01-19] MEDS ORDERED: Docusate Sodium 100 MG Cap PO SCH (21:00)
[2025-01-19] MEDS ORDERED: LYBALVI PO (21:54)
[2025-01-19] MEDS ORDERED: Prozac40 MG PO (21:54)
[2025-01-19] MEDS ORDERED: STEGLATRO15 MG PO (21:55)
[2025-01-19 22:00] VITALS: BP 165/93
[2025-01-19 22:23] LABS: Bun/Creatinine Ratio 32.4 (12.0-20.0); Creatinine, Blood 0.52 mg/dL (0.40-1.00); Potassium, Blood 3.8 mmol/L (3.5-5.5)
[2025-01-20] VITALS (7 sets, daily range): BP systolic 132–180; BP diastolic 74–97
[2025-01-20] MEDS ORDERED: Insulin Human Lispro 100 Units/ML 3ML Syringe SC SCH
[2025-01-20 03:41] LABS: BASOPHILS ABSOLUTE AUTO 0.04 K/mm3 (0.00-0.23); BASOPHILS PERCENT AUTO 0 % (0-2); EOSINOPHILS ABSOLUTE AUTO 0.05 K/mm3 (0.00-0.68); EOSINOPHILS PERCENT AUTO 1 % (0-6); Hematocrit 42.7 % (33.0-51.0); Hemoglobin 14.9 g/dL (11.5-16.0); IMMATURE GRAN ABSOLUTE AUTO 0.02 K/mm3 (0.00-0.10); IMMATURE GRAN PERCENT AUTO 0 % (0-1); LYMPHOCYTES ABSOLUTE AUTO 3.15 K/mm3 (0.84-5.20); LYMPHOCYTES PERCENT AUTO 31 % (21-46); MONOCYTES ABSOLUTE AUTO 0.75 K/mm3 (0.16-1.47); MONOCYTES PERCENT AUTO 7 % (4-13); Mean Corpuscular HGB 29.5 pg (26.0-34.0); Mean Corpuscular HGB Conc 34.9 g/dL (31.5-36.5); Mean Corpuscular Volume 85 fL (80-100); Mean Platelet Volume 9.6 fL (9.1-12.4); NEUTROPHILS ABSOLUTE AUTO 6.29 K/mm3 (1.96-9.15); NEUTROPHILS PERCENT AUTO 61 % (41-73); Platelet Count 233 K/mm3 (150-400); RDW Coefficient Variation 12.5 % (11.7-14.2); RDW Standard Deviation 38.3 fL (35.1-46.3); Red Blood Cell Count 5.05 M/mm3 (3.80-5.20)
[2025-01-20 04:01] LABS: Albumin, Blood 3.7 g/dL (3.4-5.0); Albumin/Globulin Ratio 0.9 (0.8-1.8); Bun/Creatinine Ratio 31.7 (12.0-20.0); Calcium, Blood 8.4 mg/dL (8.5-10.1); Creatinine, Blood 0.5 mg/dL (0.40-1.00); Magnesium, Blood 2.4 mg/dL (1.6-2.4); Total Protein, Blood 7.7 g/dL (6.4-8.2)
[2025-01-20] MEDS ORDERED: Potassium Chloride 20 MEQ TabCR PO ONE (05:00)
[2025-01-20] MEDS ORDERED: Potassium Chloride 40 MEQ in NS 250 ML IV ONE (05:30)
--- NOTE | 2025-01-20 06:32 | NUR ---
SHIFT SUMMARY PT A&OX4. VSS ON RA. PT ON TELE NSR 80s-90s WITH ST UPON EXERTION. PT ARRIVED WITH NAUSEA AND DEVELOPED EMESIS THROUGHOUT THE NIGHT. PRN ZOFRAN AND REGLAN GIVEN WITH GOOD EFFECT. PT VERY WEAK ON FEET HOWEVER ABLE TO GO TO BATHROOM WITH 1 ASSIST. PT GIVEN FLUIDS CONTINUOUSLY THROUGHOUT NIGHT. CBGs TAKEN Q4Hr. SEE CHART FOR RESULTS. POTASSIUM RESULTED 3.0 THIS AM. MD NOTIFIED AND REPLACEMENTS ORDERED. NO FURTHER QUESTIONS OR CONCERNS AT THIS TIME. WILL CONTINUE WITH PLAN OF CARE AND REPORT TO ONCOMING NURSE.
[2025-01-20] MEDS ORDERED: Heparin Sodium 5000 Units/ML 1ML MDV SC SCH (09:00)
[2025-01-20] MEDS ORDERED: CefTRIAXone Sodium 1,000 MG in NS 100 ML IV SCH (12:00)
--- NOTE | 2025-01-20 17:30 | NUR ---
THIS RN OVERSAW, REVIEWED AND AGREED WITH STUDENT RN'S ASSESSMENT AND CHARTING.
[2025-01-20] MEDS ORDERED: HydrALAZINE HCl 20 MG / ML 1ML Vial IV PRN (18:30)
--- NOTE | 2025-01-20 19:34 | NUR ---
PATIENT AOX4 COMPLAINING OF NAUSEA THROUGHOUT THE DAY. SHE RECIEVED ZOFRAN AND REGLAN ALTERATING FOR THE SHIFT. THE MEDICATIONS DID DECREASE THE NAUSEA BUT NOT COMPLETELY. THE PATIENT DID HAVE AN EPISODE OF EMISIS TODAY. SHE RECIEVED CONTINUOUS IV FLUIDS. HER VITALS WERE STABLE WITH HER BLOOD PRESSURE ELEVATED TOWARD THE END OF SHIFT.
--- NOTE | 2025-01-21 03:55 | NUR ---
SHIFT SUMMARY 44 YR F TRANSFERED TO MEDICAL UNIT FROM PCU THIS SHIFT. FULL CODE. NO ACUTE CHANGES SINCE ARRIVING TO MEDICAL UN IT. PT VOMITED A COUPLE OF TIMES SHORTLY AFTER ARRIVING BUT OF 399 HAS HAD NO MORE EPISODES OF EMISIS. SHE WAS MEDICATED ONCE W/ ZOFRAN AND HAS BEEN SLEEPING SINCE. SHE STATES THAT SHE FEELS HORRIBLE AND STATES THAT THIS HAPPENS TO HER A COUPLE OF TIMES A YEAR. PT HAS NOT EATEN ANYTHING BUT IS TOLERATING ICE CHIPS. STAYED THE NIGHT IN THE ROOM WITH HER AND OFFERED EMOTIONAL AND PHYSICAL SUPPORT. WILL CONTINUE TO MONITOR. BED IN LOW POSITION AND CALL LIGHT IN REACH.
[2025-01-21 04:20] VITALS: BP 178/93
[2025-01-21 05:26] LABS: BASOPHILS ABSOLUTE AUTO 0.04 K/mm3 (0.00-0.23); BASOPHILS PERCENT AUTO 1 % (0-2); EOSINOPHILS ABSOLUTE AUTO 0.06 K/mm3 (0.00-0.68); EOSINOPHILS PERCENT AUTO 1 % (0-6); Hematocrit 46.1 % (33.0-51.0); Hemoglobin 16.3 g/dL (11.5-16.0); IMMATURE GRAN ABSOLUTE AUTO 0.03 K/mm3 (0.00-0.10); IMMATURE GRAN PERCENT AUTO 0 % (0-1); LYMPHOCYTES PERCENT AUTO 40 % (21-46); MONOCYTES ABSOLUTE AUTO 0.57 K/mm3 (0.16-1.47); MONOCYTES PERCENT AUTO 7 % (4-13); Mean Corpuscular HGB 29.2 pg (26.0-34.0); Mean Corpuscular HGB Conc 35.4 g/dL (31.5-36.5); Mean Corpuscular Volume 83 fL (80-100); Mean Platelet Volume 9.5 fL (9.1-12.4); NEUTROPHILS ABSOLUTE AUTO 4.26 K/mm3 (1.96-9.15); NEUTROPHILS PERCENT AUTO 52 % (41-73); Platelet Count 247 K/mm3 (150-400); RDW Coefficient Variation 12.2 % (11.7-14.2); RDW Standard Deviation 37.2 fL (35.1-46.3); Red Blood Cell Count 5.58 M/mm3 (3.80-5.20); White Blood Cell Count 8.26 K/mm3 (4.00-11.30)
[2025-01-21 05:54] LABS: Bilirubin, Total 0.8 mg/dL (0.1-1.0); Bun/Creatinine Ratio 19.5 (12.0-20.0); Creatinine, Blood 0.51 mg/dL (0.40-1.00); Globulin, Blood 4.2 g/dL (2.2-4.0); Total Protein, Blood 8.2 g/dL (6.4-8.2)
[2025-01-21 07:33] VITALS: BP 154/93
[2025-01-21] MEDS ORDERED: Potassium Chloride 40 MEQ in NS 250 ML IV ONE (08:50)
[2025-01-21] MEDS ORDERED: ROSUVASTATIN CA10 MG PO (13:39)
[2025-01-21 16:14] VITALS: BP 150/100
--- NOTE | 2025-01-21 18:14 | NUR ---
SHIFT NOTE: PT A/OX4 ABLE TO MAKE HER NEEDS KNONW. SHE HAS BEEN TEARFUL AND ANXIOUS T/O DAY. SHE HAS CONTINUED TO HAVE NAUSEA AND VOMITING T/O DAY THAT HAS BEEN TREATED WITH ZOFRAN AND REGLAN. D5NS1/2 INFUSING PER EMAR. WITH ENCOURAGEMENT FROM STAFF SHE HAS AMBULATED DOWN THE [facility] SEVERAL TIMES. SHE DENIES ANY BMS TODAY. CALL LIGHT IN REACH
[2025-01-21 20:04] VITALS: BP 153/83
--- NOTE | 2025-01-22 04:12 | NUR ---
PUBLIC SERVICES ASSISTANT SUMMARY VSS. ACCUCHECKS Q 4 HRS. HAS NOT NEEDED INSULIN COVERAGE OF SHIFT START. IVF OF D5 0.5NS INFUSING AT 75 ML/HR. CONTINUES TO HAVE EPISODES OF N/V BUT LESS NOTED DIARRHEA. MEDS ADMIN NEEDED - SEE MAR FOR DETAILS. ALERT AND ORIENTED. HAS BEEN RESTING QUIETLY WITH OCCASIONAL INTERRUPTOINS MENTIONED ABOVE. UP AD MARY, ABLE TO REPOSITION SELF IN BED FOR COMFORT. CALL LIGHT IN REACH, RAILS UP X 2 AND BED IN LOW POSITION FOR SAFETY. WILL CONTINUE TO MONITOR
[2025-01-22 04:28] VITALS: BP 166/100
[2025-01-22 05:20] LABS: BASOPHILS ABSOLUTE AUTO 0.03 K/mm3 (0.00-0.23); BASOPHILS PERCENT AUTO 0 % (0-2); EOSINOPHILS ABSOLUTE AUTO 0.08 K/mm3 (0.00-0.68); EOSINOPHILS PERCENT AUTO 1 % (0-6); Hematocrit 43.2 % (33.0-51.0); Hemoglobin 15.5 g/dL (11.5-16.0); IMMATURE GRAN ABSOLUTE AUTO 0.03 K/mm3 (0.00-0.10); IMMATURE GRAN PERCENT AUTO 0 % (0-1); LYMPHOCYTES PERCENT AUTO 33 % (21-46); MONOCYTES ABSOLUTE AUTO 0.66 K/mm3 (0.16-1.47); MONOCYTES PERCENT AUTO 8 % (4-13); Mean Corpuscular HGB 29.2 pg (26.0-34.0); Mean Corpuscular HGB Conc 35.9 g/dL (31.5-36.5); Mean Corpuscular Volume 81 fL (80-100); Mean Platelet Volume 9.4 fL (9.1-12.4); NEUTROPHILS ABSOLUTE AUTO 4.54 K/mm3 (1.96-9.15); NEUTROPHILS PERCENT AUTO 57 % (41-73); Platelet Count 217 K/mm3 (150-400); RDW Coefficient Variation 12.2 % (11.7-14.2); RDW Standard Deviation 36.3 fL (35.1-46.3); Red Blood Cell Count 5.31 M/mm3 (3.80-5.20); White Blood Cell Count 7.94 K/mm3 (4.00-11.30)
[2025-01-22 05:37] VITALS: BP 159/104
[2025-01-22 06:15] VITALS: BP 154/83
[2025-01-22 06:21] LABS: Albumin, Blood 3.7 g/dL (3.4-5.0); Bilirubin, Total 0.9 mg/dL (0.1-1.0); Bun/Creatinine Ratio 22.1 (12.0-20.0); Calcium, Blood 9.1 mg/dL (8.5-10.1); Creatinine, Blood 0.5 mg/dL (0.40-1.00); Globulin, Blood 3.8 g/dL (2.2-4.0); Total Protein, Blood 7.5 g/dL (6.4-8.2)
[2025-01-22 07:12] VITALS: BP 148/80
[2025-01-22] MEDS ORDERED: Promethazine HCl 25 MG Tab PO PRN (14:15)
[2025-01-22] MEDS ORDERED: NS 1,000 ML IV SCH (14:20)
[2025-01-22 15:53] VITALS: BP 150/96
--- NOTE | 2025-01-22 17:22 | NUR ---
PT REPORTS DOING BETTER TODAY. PT HAS BEEN TREATED FOR NAUSEA X1 TODAY AND HAS BEEN AMBULATING IN THE HALLWAY. PT STATES SHE IS DOING BETTER EATING. CALL LIGHT IS IN REACH WILL CONTINUE TO MONITOR.
[2025-01-22] MEDS ORDERED: Calcium Carbonate 500 MG Tab Chew PO PRN (18:30)
[2025-01-22 20:01] VITALS: BP 120/77
[2025-01-23 05:47] LABS: BASOPHILS ABSOLUTE AUTO 0.04 K/mm3 (0.00-0.23); BASOPHILS PERCENT AUTO 1 % (0-2); EOSINOPHILS ABSOLUTE AUTO 0.29 K/mm3 (0.00-0.68); EOSINOPHILS PERCENT AUTO 4 % (0-6); Hematocrit 39.4 % (33.0-51.0); IMMATURE GRAN ABSOLUTE AUTO 0.02 K/mm3 (0.00-0.10); IMMATURE GRAN PERCENT AUTO 0 % (0-1); LYMPHOCYTES PERCENT AUTO 47 % (21-46); MONOCYTES ABSOLUTE AUTO 0.49 K/mm3 (0.16-1.47); MONOCYTES PERCENT AUTO 6 % (4-13); Mean Corpuscular HGB 29.3 pg (26.0-34.0); Mean Corpuscular HGB Conc 35.5 g/dL (31.5-36.5); Mean Corpuscular Volume 82 fL (80-100); Mean Platelet Volume 9.9 fL (9.1-12.4); NEUTROPHILS ABSOLUTE AUTO 3.26 K/mm3 (1.96-9.15); NEUTROPHILS PERCENT AUTO 42 % (41-73); Platelet Count 204 K/mm3 (150-400); RDW Coefficient Variation 12.4 % (11.7-14.2); RDW Standard Deviation 37.8 fL (35.1-46.3); Red Blood Cell Count 4.78 M/mm3 (3.80-5.20)
[2025-01-23] MEDS ORDERED: Insulin Human Lispro 100 Units/ML 3ML Syringe SC SCH (06:00)
[2025-01-23 06:05] VITALS: BP 132/86
[2025-01-23 06:11] LABS: Albumin, Blood 3.2 g/dL (3.4-5.0); Bilirubin, Total 0.8 mg/dL (0.1-1.0); Bun/Creatinine Ratio 25.8 (12.0-20.0); Calcium, Blood 8.5 mg/dL (8.5-10.1); Creatinine, Blood 0.54 mg/dL (0.40-1.00); Globulin, Blood 3.3 g/dL (2.2-4.0); Potassium, Blood 2.9 mmol/L (3.5-5.5); Total Protein, Blood 6.5 g/dL (6.4-8.2)
[2025-01-23 07:30] VITALS: BP 125/78
--- NOTE | 2025-01-23 07:58 | NUR ---
Rn summary: Patient is alert and oriented. Very pleasant. Pt states ate 100% of full liquid dinner. She had no nausea or emisis this shift. Pt sugars Q6 covered with low sliding scale. Assessment WNL for pt. She did not sleep last night. Just rested. Hopes to be discharged today. Able to make needs known.
[2025-01-23 14:58] VITALS: BP 130/74
[2025-01-23] MEDS ORDERED: ONDA4ODT MM (15:36)
[2025-01-23] MEDS ORDERED: CEPH500 PO (15:37)
[2025-01-23] MEDS ORDERED: PROMETHAZINE12.5 M1 PO (15:38)
--- NOTE | 2025-01-23 16:05 | NUR ---
DISCHARGE NOTE PT A&OX4. PT ADMITTED DUE TO UTI, PT REPORTS NO PAIN. PT GOT A DOSE OF IV ANTIBIOTIC THIS AM. PT INDEPENDENT IN ROOM. PT TOLERATED FULL LIQUIDS. PT REPORTED NO N/V. PT REPORTS NO DIAREAH AND HAD SMALL BM THIS MORNING. WENT OVER DISCHARGE INSTRUCTIONS AND MEDS. PT HAS ACHS BLOODSUGARS, CONTROLLED BY CORRECTION SCALE. VSS. MEDS FAXED TO PREFERED PHARMACY, PT ESCORTED BY WHEELCHAIR TO VEHICLE. IV D/C'D.
== END 2025-01-23 16:03 | disposition home or self-care (01) | DRG 872 ==
LOC: ER 17:08 → PCU 20:40 → MEDS 01-20 22:01
PROVIDERS: Emergency Medicine; Family Medicine; Nurse Practitioner Acute Care; Student in an Organized Health Care Education/Training Program; ADMIT Internal Medicine
DX: A41.9 Sepsis, unspecified organism (principal); E87.4 Mixed disorder of acid-base balance; N39.0 Urinary tract infection, site not specified; K52.9 Noninfective gastroenteritis and colitis, unspecified; E11.9 Type 2 diabetes mellitus without complications; F17.210 Nicotine dependence, cigarettes, uncomplicated; R11.2 Nausea with vomiting, unspecified; Z86.73 Personal history of transient ischemic attack (TIA), and cerebral infarction without residual deficits; Z85.72 Personal history of non-Hodgkin lymphomas; Z88.0 Allergy status to penicillin; Z88.8 Allergy status to other drugs, medicaments and biological substances; Z91.010 Allergy to peanuts; Z79.4 Long term (current) use of insulin; Z79.899 Other long term (current) drug therapy; Z88.5 Allergy status to narcotic agent; Z79.84 Long term (current) use of oral hypoglycemic drugs; Z79.2 Long term (current) use of antibiotics
CPT/HCPCS: 36415; 71046; 74177; 80048; 80053; 81001; 82010; 82803; 82947; 83605; 83690; 83735; 84484; 85025; 87040; 87086; 93005; 93010; 96361; 96374; 96374-59; 96375; 99284-25; 99285-25; A9270; J0360; J0696; J1200; J1630; J1644; J1790; J1885; J2405; J2765; J3475; J3480; J7030; J7042; J7050; J7120; Q9967

== ENCOUNTER 2025-01-27 23:02 | Observation (INO) | payer OTHER ==
[~2025-01-27] VITALS: Ht 167.6 cm; Wt 96.5 kg
[~2025-01-27 23:02] MED LIST changes: +LYBALVI PO; +PROMETHAZINE12.5 M1 PO; +Prozac40 MG PO; +ROSUVASTATIN CA10 MG PO; +STEGLATRO15 MG PO
[2025-01-27] MEDS ORDERED: Ondansetron HCl 2 MG / ML 2ML Vial IV PRN (23:20)
[2025-01-27 23:33] LABS: BASOPHILS PERCENT AUTO 1 % (0-2); EOSINOPHILS ABSOLUTE AUTO 0.05 K/mm3 (0.00-0.68); EOSINOPHILS PERCENT AUTO 0 % (0-6); Hematocrit 48.1 % (33.0-51.0); Hemoglobin 16.5 g/dL (11.5-16.0); IMMATURE GRAN ABSOLUTE AUTO 0.11 K/mm3 (0.00-0.10); IMMATURE GRAN PERCENT AUTO 1 % (0-1); LYMPHOCYTES ABSOLUTE AUTO 3.56 K/mm3 (0.84-5.20); LYMPHOCYTES PERCENT AUTO 18 % (21-46); MONOCYTES PERCENT AUTO 6 % (4-13); Mean Corpuscular HGB 29.2 pg (26.0-34.0); Mean Corpuscular HGB Conc 34.3 g/dL (31.5-36.5); Mean Corpuscular Volume 85 fL (80-100); Mean Platelet Volume 9.8 fL (9.1-12.4); NEUTROPHILS ABSOLUTE AUTO 14.63 K/mm3 (1.96-9.15); NEUTROPHILS PERCENT AUTO 75 % (41-73); Platelet Count 271 K/mm3 (150-400); RDW Coefficient Variation 12.9 % (11.7-14.2); RDW Standard Deviation 39.8 fL (35.1-46.3); Red Blood Cell Count 5.65 M/mm3 (3.80-5.20); White Blood Cell Count 19.55 K/mm3 (4.00-11.30)
[2025-01-27] MEDS ORDERED: Metoclopramide HCl 5MG / ML 2ML Vial IV ONE (23:50)
[2025-01-27] MEDS ORDERED: NS 1,000 ML IV SCH (23:50)
[2025-01-28 00:23] LABS: Albumin, Blood 4.2 g/dL (3.4-5.0); Albumin/Globulin Ratio 0.9 (0.8-1.8); Beta-hydroxybutyrate 52.4 mg/dL (0.2-2.8); Bilirubin, Total 0.9 mg/dL (0.1-1.0); Bun/Creatinine Ratio 35.2 (12.0-20.0); Calcium, Blood 9.3 mg/dL (8.5-10.1); Creatinine, Blood 0.77 mg/dL (0.40-1.00); Globulin, Blood 4.5 g/dL (2.2-4.0); Potassium, Blood 3.7 mmol/L (3.5-5.5); Total Protein, Blood 8.7 g/dL (6.4-8.2)
[2025-01-28 00:49] LABS: Base Excess Venous -1.6 mmol/L; PCO2 Venous 31.7 mmHg (38-42); pH Blood Venous 7.46 (7.34-7.37)
[2025-01-28] MEDS ORDERED: NS 1,000 ML IV SCH ×2 (02:05→06:00)
[2025-01-28 02:51] LABS: Source, Urine Clean Catch
[2025-01-28 03:02] LABS: Appearance, Urine Cloudy (Clear); Bilirubin, Urine Neg (Neg); Blood, Urine 4+ (Neg); Color, Urine Yellow (P-Yellow); Glucose Qualitative, Urine 4+ (Neg); Ketones, Urine 4+ (Neg); Leukocyte Esterase, Urine 3+ (Neg); Nitrite, Urine Neg (Neg); Protein, Urine 2+ (Neg); Specific Gravity, Urine 1.025 (1.003-1.022); Urobilinogen, Urine NORM (Normal)
[2025-01-28 03:09] LABS: Bacteria Mod /hpf; Squamous Epithelial Cells Few /hpf (Few); White Blood Cells, Urine TNTC /hpf (0-5); Yeast/Fungi Urine Many /hpf
[2025-01-28] MEDS ORDERED: Metoclopramide HCl 5MG / ML 2ML Vial IV ONE (04:20)
[2025-01-28] MEDS ORDERED: Lactated Ringer's 1,000 ML IV ONE (04:25)
[2025-01-28] MEDS ORDERED: Haloperidol Lactate Inj. 5 MG/ML Injection IV ONE (04:35)
[2025-01-28] MEDS ORDERED: Metoclopramide HCl 5MG / ML 2ML Vial IV PRN (05:10)
[2025-01-28] MEDS ORDERED: Prochlorperazine Edisylate 10 mg Vial IV PRN (05:10)
[2025-01-28] MEDS ORDERED: Ondansetron HCl 2 MG / ML 2ML Vial IV PRN (05:10)
[2025-01-28] MEDS ORDERED: Acetaminophen 325 MG TABLET PO PRN (05:15)
[2025-01-28] MEDS ORDERED: FLU VACC TS2024-25(6MOS UP)/PF 45 MCG/0.5 ML SYRINGE IM ONE (05:15)
[2025-01-28] MEDS ORDERED: CefTRIAXone Sodium 1,000 MG in NS 100 ML IV SCH (05:31)
[2025-01-28] MEDS ORDERED: Insulin Regular 100 UNIT/ML 10ML Vial SC SCH (06:00)
[2025-01-28] MEDS ORDERED: Insulin Human Lispro 100 Units/ML 3ML Syringe SC SCH (12:00)
[2025-01-28 12:22] LABS: BASOPHILS ABSOLUTE AUTO 0.05 K/mm3 (0.00-0.23); BASOPHILS PERCENT AUTO 0 % (0-2); EOSINOPHILS ABSOLUTE AUTO 0.08 K/mm3 (0.00-0.68); EOSINOPHILS PERCENT AUTO 1 % (0-6); Hematocrit 42.6 % (33.0-51.0); Hemoglobin 14.7 g/dL (11.5-16.0); IMMATURE GRAN ABSOLUTE AUTO 0.08 K/mm3 (0.00-0.10); IMMATURE GRAN PERCENT AUTO 1 % (0-1); LYMPHOCYTES ABSOLUTE AUTO 3.11 K/mm3 (0.84-5.20); LYMPHOCYTES PERCENT AUTO 23 % (21-46); MONOCYTES ABSOLUTE AUTO 0.93 K/mm3 (0.16-1.47); MONOCYTES PERCENT AUTO 7 % (4-13); Mean Corpuscular HGB 29.6 pg (26.0-34.0); Mean Corpuscular HGB Conc 34.5 g/dL (31.5-36.5); Mean Corpuscular Volume 86 fL (80-100); Mean Platelet Volume 9.8 fL (9.1-12.4); NEUTROPHILS ABSOLUTE AUTO 9.59 K/mm3 (1.96-9.15); NEUTROPHILS PERCENT AUTO 69 % (41-73); Platelet Count 232 K/mm3 (150-400); RDW Coefficient Variation 12.9 % (11.7-14.2); Red Blood Cell Count 4.97 M/mm3 (3.80-5.20); White Blood Cell Count 13.84 K/mm3 (4.00-11.30)
[2025-01-28 12:22] LABS: Base Excess Venous 0.2 mmol/L; Bicarbonate Venous 25.2 mmol/L (24.0-30.0); PCO2 Venous 33.4 mmHg (38-42); pH Blood Venous 7.47 (7.34-7.37)
[2025-01-28 13:04] LABS: Albumin, Blood 3.6 g/dL (3.4-5.0); Anion Gap 12 mmol/L (3-11); Blood Urea Nitrogen 18 mg/dL (8-24); Bun/Creatinine Ratio 33.1 (12.0-20.0); CO2, Blood 25 mmol/L (21-32); Calcium, Blood 8.4 mg/dL (8.5-10.1); Chloride, Blood 98 mmol/L (98-108); Creatinine, Blood 0.54 mg/dL (0.40-1.00); Glomerular Filtration Rate 116 (60-); Glucose, Blood 161 mg/dL (70-99); Phosphorus, Blood 2.3 mg/dL (2.5-4.9); Potassium, Blood 3.5 mmol/L (3.5-5.5); Sodium, Blood 131 mmol/L (136-145)
--- NOTE | 2025-01-28 15:40 | NUR ---
PT TO ROOM 302 FROM ED.
[2025-01-28 15:42] VITALS: BP 133/85
--- NOTE | 2025-01-28 18:44 | NUR ---
SHIFT SUMMARY PT ADMITTED FROM THE ED THIS AFTERNOON. PT IS A/OX4, INDEPENDENT IN THE ROOM. PT REPORTS CHRONIC NAUSEA AND VOMITTING, MEDICATED PER JAN. NO VOMITTING NOTED SINCE ADMIT. NS RUNNING @ 150 ML/HR. PT IS PLEASANT AND COOPERATIVE WITH CARE.
[2025-01-28 19:28] VITALS: BP 135/84
[2025-01-28] MEDS ORDERED: Atorvastatin 10 MG Tab PO SCH (20:00)
[2025-01-28] MEDS ORDERED: Insulin Glargine-Yfgn 100 Unit/mL 3 ML SYR SC SCH (21:00)
[2025-01-29 04:16] VITALS: BP 115/76
[2025-01-29] MEDS ORDERED: NS 250 ML IV PRN (04:50)
[2025-01-29 04:59] LABS: BASOPHILS ABSOLUTE AUTO 0.04 K/mm3 (0.00-0.23); BASOPHILS PERCENT AUTO 0 % (0-2); EOSINOPHILS ABSOLUTE AUTO 0.19 K/mm3 (0.00-0.68); EOSINOPHILS PERCENT AUTO 2 % (0-6); Hemoglobin 13.1 g/dL (11.5-16.0); IMMATURE GRAN ABSOLUTE AUTO 0.03 K/mm3 (0.00-0.10); IMMATURE GRAN PERCENT AUTO 0 % (0-1); LYMPHOCYTES ABSOLUTE AUTO 4.46 K/mm3 (0.84-5.20); LYMPHOCYTES PERCENT AUTO 46 % (21-46); MONOCYTES ABSOLUTE AUTO 0.79 K/mm3 (0.16-1.47); MONOCYTES PERCENT AUTO 8 % (4-13); Mean Corpuscular HGB 29.4 pg (26.0-34.0); Mean Corpuscular HGB Conc 33.6 g/dL (31.5-36.5); Mean Corpuscular Volume 87 fL (80-100); Mean Platelet Volume 9.9 fL (9.1-12.4); NEUTROPHILS ABSOLUTE AUTO 4.12 K/mm3 (1.96-9.15); NEUTROPHILS PERCENT AUTO 43 % (41-73); Platelet Count 217 K/mm3 (150-400); RDW Coefficient Variation 12.8 % (11.7-14.2); RDW Standard Deviation 40.7 fL (35.1-46.3); Red Blood Cell Count 4.46 M/mm3 (3.80-5.20); White Blood Cell Count 9.63 K/mm3 (4.00-11.30)
[2025-01-29 05:27] LABS: Albumin, Blood 3.1 g/dL (3.4-5.0); Bilirubin, Total 0.5 mg/dL (0.1-1.0); Calcium, Blood 8.2 mg/dL (8.5-10.1); Creatinine, Blood 0.65 mg/dL (0.40-1.00); Globulin, Blood 3.2 g/dL (2.2-4.0); Potassium, Blood 3.5 mmol/L (3.5-5.5); Total Protein, Blood 6.3 g/dL (6.4-8.2)
--- NOTE | 2025-01-29 05:49 | NUR ---
Shift Summary Pt very nauseous at the start of the shift, medicated once with Zofran and once with Compazine. After Compazine pt was able to sleep for 8 hours w/o c/o nausea. This AM she woke up feeling somewhat nauseous but much better than last night, gave 1 more dose of Zofran. Educated pt about cannabis hyperemesis. She is AOx4, independent in the room.
[2025-01-29] MEDS ORDERED: Insulin Human Lispro 100 Units/ML 3ML Syringe SC SCH (07:30)
[2025-01-29 07:42] VITALS: BP 120/83
[2025-01-29] MEDS ORDERED: Enoxaparin 40 MG/0.4 ML SYR SC SCH (09:00)
[2025-01-29] MEDS ORDERED: FLUoxetine HCL 20 MG CAP PO SCH (09:00)
--- NOTE | 2025-01-29 11:14 | NUR ---
Upon the request of the pts. nurse, this cover cutter machine came to the Pts. bedside. Spouse is present, and Pt. verbalized that she remembered this cover cutter machine from a recent event in the ICU when her Aunt had passed. Facilitated a shorter life review, and listened with empathy and a calming presence. Matters of grief , recovery, and self care are discussed. Pt. displayed evidence of understanding and agreement and welcomed this cover cutter machine to return.
[2025-01-29] MEDS ORDERED: Sennosides 8.6 MG Tab PO ONE (15:05)
--- NOTE | 2025-01-29 16:36 | NUR ---
PT DISCHARGED 1515 WITH INSTRUCTIONS. SENT HOME WITH BELONGINGS. PT HAS APT FOR PCP TOMORROW TO DISCUSS MEDICAL ISSUES. WHEELCHAIR ESCORT OUT TO PRIVATE CAR, TO DRIVE PT HOME
== END 2025-01-29 15:18 | disposition home or self-care (01) ==
LOC: ER 23:02 → ERHOLD 23:03 → ER 01-28 05:06 → ERHOLD 01-28 05:06 → MEDS 01-28 15:45
PROVIDERS: Emergency Medicine; Family Medicine; Student in an Organized Health Care Education/Training Program; ADMIT Student in an Organized Health Care Education/Training Program
DX: R11.2 Nausea with vomiting, unspecified (principal); E11.43 Type 2 diabetes mellitus with diabetic autonomic (poly)neuropathy; K31.84 Gastroparesis; E11.65 Type 2 diabetes mellitus with hyperglycemia; R82.81 Pyuria; E86.0 Dehydration; E78.5 Hyperlipidemia, unspecified; F12.10 Cannabis abuse, uncomplicated; F32.A Depression, unspecified; Z66 Do not resuscitate; Z87.891 Personal history of nicotine dependence; Z88.0 Allergy status to penicillin; Z88.5 Allergy status to narcotic agent; Z91.010 Allergy to peanuts; Z79.899 Other long term (current) drug therapy; Z90.710 Acquired absence of both cervix and uterus
CPT/HCPCS: 36415; 80053; 80069; 81001; 82010; 82803; 82947; 83605; 83690; 85025; 87086; 93005; 93010; 96361; 96372; 96374; 96375; 96376; 99284-25; A9270; G0378; J0696; J0780; J1630; J1650; J1815; J2405; J2765; J7030; J7050; J7120

== ENCOUNTER → 2025-02-03 | Outpatient (CLI) | payer OTHER ==
[2025-02-03 12:09] LABS: BASOPHILS ABSOLUTE AUTO 0.04 K/mm3 (0.00-0.23); BASOPHILS PERCENT AUTO 0 % (0-2); EOSINOPHILS PERCENT AUTO 0 % (0-6); Hemoglobin 15.5 g/dL (11.5-16.0); IMMATURE GRAN ABSOLUTE AUTO 0.07 K/mm3 (0.00-0.10); IMMATURE GRAN PERCENT AUTO 1 % (0-1); LYMPHOCYTES PERCENT AUTO 10 % (21-46); MONOCYTES ABSOLUTE AUTO 0.18 K/mm3 (0.16-1.47); MONOCYTES PERCENT AUTO 1 % (4-13); Mean Corpuscular HGB 28.7 pg (26.0-34.0); Mean Corpuscular HGB Conc 33.7 g/dL (31.5-36.5); Mean Corpuscular Volume 85 fL (80-100); NEUTROPHILS ABSOLUTE AUTO 12.87 K/mm3 (1.96-9.15); NEUTROPHILS PERCENT AUTO 88 % (41-73); Platelet Count 297 K/mm3 (150-400); RDW Coefficient Variation 13.1 % (11.7-14.2); RDW Standard Deviation 39.8 fL (35.1-46.3); Red Blood Cell Count 5.41 M/mm3 (3.80-5.20); White Blood Cell Count 14.66 K/mm3 (4.00-11.30)
[2025-02-03 12:20] LABS: Albumin, Blood 4.3 g/dL (3.4-5.0); Albumin/Globulin Ratio 0.9 (0.8-1.8); Bilirubin, Total 0.7 mg/dL (0.1-1.0); Bun/Creatinine Ratio 24.1 (12.0-20.0); Calcium, Blood 9.5 mg/dL (8.5-10.1); Creatinine, Blood 0.79 mg/dL (0.40-1.00); Globulin, Blood 4.6 g/dL (2.2-4.0); Potassium, Blood 4.2 mmol/L (3.5-5.5); Total Protein, Blood 8.9 g/dL (6.4-8.2)
== END | disposition home or self-care (01) ==
LOC: LAB SHORT 12:03 → LAB 12:03
PROVIDERS: Chiropractor
DX: R11.2 Nausea with vomiting, unspecified (principal)
CPT/HCPCS: 80053; 83690; 85025

== ENCOUNTER 2025-02-13 06:16 | Day surgery (SDC) | payer OTHER ==
[~2025-02-13] VITALS: Ht 167.6 cm; Wt 97.7 kg
[2025-02-13] MEDS ORDERED: Triamcinolone Inj Susp 40 MG / ML 1ML Vial ONE (07:02)
[2025-02-13] MEDS ORDERED: FLUT1DIS2 (07:17)
[2025-02-13] MEDS ORDERED: Lactated Ringer's 1,000 ML IV ONE ×2 (07:28→07:52)
[2025-02-13] MEDS ORDERED: propofoL 50 ML IV ONE (08:04)
[2025-02-13 09:22] VITALS: BP 123/71
== END 2025-02-13 08:58 | disposition home or self-care (01) ==
LOC: ORSCSDS 06:16
PROVIDERS: Internal Medicine Gastroenterology
PROC: 0DBA8ZX Excision of Jejunum, Via Natural or Artificial Opening Endoscopic, Diagnostic (ICD-10-PCS; principal; 2025-02-13 08:15)
PROC: 0DB98ZX Excision of Duodenum, Via Natural or Artificial Opening Endoscopic, Diagnostic (ICD-10-PCS; principal; 2025-02-13 08:15)
PROC: 0DB68ZX Excision of Stomach, Via Natural or Artificial Opening Endoscopic, Diagnostic (ICD-10-PCS; principal; 2025-02-13 08:15)
DX: R10.13 Epigastric pain (principal); R11.2 Nausea with vomiting, unspecified; Z87.19 Personal history of other diseases of the digestive system; E11.9 Type 2 diabetes mellitus without complications; E78.5 Hyperlipidemia, unspecified; I10 Essential (primary) hypertension; K21.9 Gastro-esophageal reflux disease without esophagitis; J45.909 Unspecified asthma, uncomplicated; Z87.891 Personal history of nicotine dependence; Z79.899 Other long term (current) drug therapy
CPT/HCPCS: 82947; 88305; 88342; J2704; J3301; J7120

== ENCOUNTER 2025-03-21 23:08 | Inpatient (IN) | payer OTHER ==
[~2025-03-21] VITALS: Ht 167.6 cm; Wt 98.5 kg
[~2025-03-21 23:08] MED LIST changes: +FLUT1DIS2
[2025-03-22 00:31] LABS: Albumin, Blood 4.7 g/dL (3.4-5.0); Albumin/Globulin Ratio 0.9 (0.8-1.8); Bilirubin, Total 0.8 mg/dL (0.1-1.0); Bun/Creatinine Ratio 22.8 (12.0-20.0); Calcium, Blood 9.5 mg/dL (8.5-10.1); Creatinine, Blood 0.7 mg/dL (0.40-1.00); Potassium, Blood 3.8 mmol/L (3.5-5.5); Total Protein, Blood 9.7 g/dL (6.4-8.2)
[2025-03-22 02:03] LABS: Source, Urine Clean Catch
[2025-03-22 02:07] LABS: Bilirubin, Urine Neg (Neg); Blood, Urine 2+ (Neg); Glucose Qualitative, Urine 4+ (Neg); Ketones, Urine 4+ (Neg); Leukocyte Esterase, Urine 3+ (Neg); Nitrite, Urine Neg (Neg); Protein, Urine 3+ (Neg); Urobilinogen, Urine NORM (Normal)
[2025-03-22 02:14] LABS: Appearance, Urine Hazy (Clear); Color, Urine Yellow (P-Yellow)
[2025-03-22 02:16] LABS: BASOPHILS ABSOLUTE AUTO 0.03 K/mm3 (0.00-0.23); BASOPHILS PERCENT AUTO 0 % (0-2); EOSINOPHILS ABSOLUTE AUTO 0.01 K/mm3 (0.00-0.68); EOSINOPHILS PERCENT AUTO 0 % (0-6); Hematocrit 43.7 % (33.0-51.0); Hemoglobin 14.4 g/dL (11.5-16.0); IMMATURE GRAN ABSOLUTE AUTO 0.08 K/mm3 (0.00-0.10); IMMATURE GRAN PERCENT AUTO 1 % (0-1); LYMPHOCYTES ABSOLUTE AUTO 1.64 K/mm3 (0.84-5.20); LYMPHOCYTES PERCENT AUTO 15 % (21-46); MONOCYTES ABSOLUTE AUTO 0.32 K/mm3 (0.16-1.47); MONOCYTES PERCENT AUTO 3 % (4-13); Mean Corpuscular HGB 28.7 pg (26.0-34.0); Mean Corpuscular Volume 87 fL (80-100); Mean Platelet Volume 9.5 fL (9.1-12.4); NEUTROPHILS ABSOLUTE AUTO 8.96 K/mm3 (1.96-9.15); NEUTROPHILS PERCENT AUTO 81 % (41-73); Platelet Count 244 K/mm3 (150-400); RDW Coefficient Variation 14.2 % (11.7-14.2); RDW Standard Deviation 44.7 fL (35.1-46.3); Red Blood Cell Count 5.02 M/mm3 (3.80-5.20); White Blood Cell Count 11.04 K/mm3 (4.00-11.30)
[2025-03-22 02:22] LABS: Bacteria Few /hpf; Squamous Epithelial Cells Not Seen /hpf (Few); White Blood Cells, Urine TNTC /hpf (0-5)
[2025-03-22] MEDS ORDERED: Ondansetron HCl 2 MG / ML 2ML Vial IV ONE (02:55)
[2025-03-22] MEDS ORDERED: Lactated Ringer's 1,000 ML IV ONE (03:25)
[2025-03-22] MEDS ORDERED: Metoclopramide HCl 5MG / ML 2ML Vial IV ONE (05:10)
[2025-03-22] MEDS ORDERED: Haloperidol Lactate Inj. 5 MG/ML Injection IV ONE ×2 (06:10→07:50)
[2025-03-22] MEDS ORDERED: Ondansetron HCl 2 MG / ML 2ML Vial IV PRN (09:25)
[2025-03-22] MEDS ORDERED: Metoprolol Tartrate 1 MG/ML 5 ML VIAL IV PRN (09:25)
[2025-03-22] MEDS ORDERED: Metoclopramide HCl 5MG / ML 2ML Vial IV PRN (09:30)
[2025-03-22] MEDS ORDERED: Prochlorperazine Edisylate 10 mg Vial IV PRN (09:30)
[2025-03-22] MEDS ORDERED: Lactated Ringer's 1,000 ML IV SCH (09:30)
[2025-03-22 11:29] VITALS: BP 103/64
[2025-03-22] MEDS ORDERED: Insulin Regular 100 UNIT/ML 10ML Vial SC SCH ×2 (11:30→16:30)
[2025-03-22 11:31] LABS: U Amphetamine Screen Not Detected; U Barbituate Screen Not Detected; U Benzodiazapine Screen Not Detected; U Buprenorphine Screen Not Detected; U Cannabinoids Screen DETECTED; U Cocaine Screen Not Detected; U Methadone Screen Not Detected; U Methamphetamine Screen Not Detected; U Opiates Screen Not Detected; U Oxycodone Screen Not Detected; U Phencyclidine Screen Not Detected
[2025-03-22] MEDS ORDERED: PREG100 PO (11:31)
[2025-03-22] MEDS ORDERED: ALOGLIPTIN25 M1 PO (11:32)
--- NOTE | 2025-03-22 13:38 | NUR ---
PT ADMITTED TO UNIT FROM ER @ APPROX 1120. PT ARRIVES IN WC, AWAKE AND ALERT. PT IS ACCOMPANIED BY FAMILY FRIEND/CAREGIVER. PT ABLE TO STAND AND AMBULATE INDEPENDENTLY TO HOSPITAL BED. PT CHANGED INTO GOWN, SKIN CHECK COMPLETED. PT ORIENTED TO ROOM AND CALL SYSTEM. ICE WATER PROVIDED. REGLAN ADMINISTERED DUE TO EMESIS X1, EFFECTIVE - PT NOW SLEEPING PEACEFULLY. PT DENIED SIGNIFICANT PAIN BESIDES SOME ABDOMINAL DISCOMFORT. TELE IN PLACE - SINUS TACH @ 106. ADMIT COMPLETED, MEDICATION REC COMPLETED. LR RUNNING @ 125 ML/HR. PT EDUCATED ON NO SMOKING POLICY INCLUDING IGNITION DEVICES.
[2025-03-22 14:51] VITALS: BP 180/98
[2025-03-22 14:58] VITALS: BP 150/98
[2025-03-22] MEDS ORDERED: Pregabalin 50 MG Capsule PO PRN (15:05)
[2025-03-22] MEDS ORDERED: Mometasone/Formoterol MDI 100/5 mcg 13 GM INH SCH (15:05)
[2025-03-22] MEDS ORDERED: Labetalol HCL 5 MG/ML 4ML Injection (Single Dose) IV PRN (15:05)
--- NOTE | 2025-03-22 16:21 | NUR ---
PT VERIFIED WITH PROVIDER PRESENT THAT PT HAS A POLST FORM AT HOME MARKED DNR, THIS RN VERIFIED WITH PT DNR STATUS PRIOR TO UPDATING ORDER AND PLACING DNR WRISTBAND ON LEFT WRIST. PT SISTER PRESENT IN ROOM WELL AND VERIFIES PT WISHES TO BE DNR. PT SPOUSE TO BRING IN COPY OF POLST FOR MEDICAL RECORDS.
[2025-03-22] MEDS ORDERED: Insulin Human Lispro 100 Units/ML 3ML Syringe SC SCH (16:30)
[2025-03-22] MEDS ORDERED: Insulin Glargine-Yfgn 100 Unit/mL 3 ML SYR SC ONE (17:00)
--- NOTE | 2025-03-22 17:39 | NUR ---
SHIFT SUMMARY NO ACUTE CHANGES. COPY OF POLST OBTAINED AND PLACED IN PT CHART - DNR WRISTBAND IN PLACE AND CODE STATUS UPDATED IN [facility]. TREATED FOR N/V PER EMAR, REGLAN HAVING BEST RESULTS. MANAGING DM WITH INSULIN PER ORDERS. A/Ox4, ABLE TO MAKE NEEDS KNOWN. SISTER/CAREGIVER PRESENT IN ROOM WITH PT T/O SHIFT. ABD TENDERNESS STILL PRESENT - ON CLEAR LIQUID DIET. PT CURRENTLY RESTING IN BED WITH BED IN LOWEST POSITION AND CALL LIGHT WITHIN REACH. BED ALARM ON FOR SAFETY.
[2025-03-22 19:25] VITALS: BP 158/79
--- NOTE | 2025-03-22 20:23 | NUR ---
@2019 THIS HEAT ENGINEERING TEACHER CONTACTED THE ON-CALL HOSPITALIST REGARDING PAIN ANDANXIETY MEDICATIONS FOR TH EPT PER PT C/O. PT TAKES LABOLVI AND PROZAC, THIS WAS REQUESTED BY THIS HEAT ENGINEERING TEACHER FOR PT EMAR. CHARGE NURSE NOTIFIED. ALSO REQUESTED TYLENOL FOR GENERALIZAD PAIN OR TORADOL. PER CONVERSTATION, DR. RODRIGUEZ WILL MAKE THE DECISIONS AND ADD TO PT'S EMAR.
[2025-03-22] MEDS ORDERED: Acetaminophen 325 MG TABLET PO PRN (20:35)
[2025-03-22] MEDS ORDERED: Famotidine 10 MG/ML 2ML Vial IV SCH (21:00)
[2025-03-22] MEDS ORDERED: OLANZapine 5 MG Tab PO SCH (21:00)
[2025-03-23 00:27] VITALS: BP 133/79
[2025-03-23 03:51] VITALS: BP 133/73
--- NOTE | 2025-03-23 03:53 | NUR ---
SHIFT SUMMARY NO ACUTE EVENTS DURING THIS SHIFT. MEDICATED PER EMAR FOR NAUSEA, PT REPORTS NO EMESIS DURING THIS SHIFT. LR INFUSING ORDERED. ON CLEAR LIQUID DIET. NEW ORDER OF TYLENOL AND OLANZAPINE (SEE PREVIOUS NOTE) RECEIVED AND ADMINISTERED @HS. PT REPORTS 5/10 ABDOMINAL PAIN. SO BY THE BEDSIDE SPENDING THE NIGHT. BED AT THE LOWEST POSITION, CALL LIGHT WITHIN REACH. PT IS A/O X4 ABLE TO MAKE HER NEEDS KNOWN AND COOPERATIVE WITH CARE.
[2025-03-23 06:15] LABS: BASOPHILS ABSOLUTE AUTO 0.06 K/mm3 (0.00-0.23); BASOPHILS PERCENT AUTO 1 % (0-2); EOSINOPHILS ABSOLUTE AUTO 0.17 K/mm3 (0.00-0.68); EOSINOPHILS PERCENT AUTO 1 % (0-6); Hematocrit 38.8 % (33.0-51.0); Hemoglobin 13.2 g/dL (11.5-16.0); IMMATURE GRAN ABSOLUTE AUTO 0.05 K/mm3 (0.00-0.10); IMMATURE GRAN PERCENT AUTO 0 % (0-1); LYMPHOCYTES ABSOLUTE AUTO 3.73 K/mm3 (0.84-5.20); LYMPHOCYTES PERCENT AUTO 31 % (21-46); MONOCYTES ABSOLUTE AUTO 0.97 K/mm3 (0.16-1.47); MONOCYTES PERCENT AUTO 8 % (4-13); Mean Corpuscular Volume 85 fL (80-100); Mean Platelet Volume 9.5 fL (9.1-12.4); NEUTROPHILS ABSOLUTE AUTO 7.26 K/mm3 (1.96-9.15); NEUTROPHILS PERCENT AUTO 59 % (41-73); Platelet Count 229 K/mm3 (150-400); RDW Standard Deviation 43.7 fL (35.1-46.3); Red Blood Cell Count 4.55 M/mm3 (3.80-5.20); White Blood Cell Count 12.24 K/mm3 (4.00-11.30)
[2025-03-23 06:50] LABS: Bun/Creatinine Ratio 39.3 (12.0-20.0); Calcium, Blood 8.6 mg/dL (8.5-10.1); Creatinine, Blood 0.56 mg/dL (0.40-1.00); Potassium, Blood 2.9 mmol/L (3.5-5.5)
[2025-03-23 07:33] VITALS: BP 131/90
[2025-03-23] MEDS ORDERED: Insulin Glargine-Yfgn 100 Unit/mL 3 ML SYR SC SCH (09:00)
[2025-03-23] MEDS ORDERED: Enoxaparin 40 MG/0.4 ML SYR SC SCH (09:00)
[2025-03-23] MEDS ORDERED: Rosuvastatin Calcium 10 MG Tab PO SCH (09:00)
--- NOTE | 2025-03-23 11:22 | NUR ---
PT REQUESTED TO SHOWER THIS AM AT APPROX 0745 - THIS RN AND WASTE MANAGEMENT SPECIALIST INFORMED PT WOULD NEED TO WAIT UNTIL STAFF AVAILABLE TO SIT WITH PT FOR SAFETY. PT AGREES TO WAITING FOR STAFF AVAILABILITY, AT APPROX 1000 PT AND PT SPOUSE ADAMENT THAT PT CAN SIT IN SHOWER WITH SPOUSE PRESENT FOR SAFETY. RN DICUSSED CONCERNS FOR SAFETY, PT AND PT SPOUSE INSIST ON PT SHOWERING AT THIS TIME DESPITE CONCERNS. PT AND PT SPOUSE ACCEPTED RISKS. PT SHOWERED SAFELY WITH SPOUSE AT BEDSIDE AND IS NOW BACK IN BED RESTING WITH BED IN LOWEST POSITION AND CALL LIGHT WITHIN REACH.
[2025-03-23] MEDS ORDERED: Potassium Chloride 20 MEQ TabCR PO ONE (13:10)
[2025-03-23 16:09] VITALS: BP 178/98
[2025-03-23 16:46] VITALS: BP 151/78
--- NOTE | 2025-03-23 17:09 | NUR ---
SHIFT SUMMARY NO ACUTE CHANGES, A/Ox4, ABLE TO MAKE NEEDS KNOWN. PT TREATED FOR EPIGASTRIC PAIN AND N/V PER EMAR. HOT SHOWER ALSO HELPS PT FEEL BETTER. POOR APPETITE - OR DIRECTOR INVOLVED - OFFERING CLEAR LIQUIDS AND REMAINS ON LR @ 125 ML/HR CONTINUOUS. STARTED ON IV ABX FOR UTI - CONFIRMED WITH PROVIDER OK WITH ROCEPHIN ORDER WITH PENICILLIN ALLERGY. LABEALOL GIVEN X1 FOR ELEVATED - EFFECTIVE WITH NO TELE CHANGES NOTED. PT CURRENTLY RESTING IN HOSPITAL BED WITH BED IN LOWEST POSITON AND CALL LIGHT WITHIN REACH. SPOUSE AT BEDSIDE.
[2025-03-23] MEDS ORDERED: CefTRIAXone Sodium 1,000 MG in NS 100 ML IV SCH (17:10)
[2025-03-23] MEDS ORDERED: NS 250 ML IV PRN (17:35)
[2025-03-23 20:31] VITALS: BP 160/86
[2025-03-24 00:43] VITALS: BP 108/58
--- NOTE | 2025-03-24 03:39 | NUR ---
SHIFT SUMMARY NO ACUTE EVENTS DURING THIS SHIFT. MEDICATED FOR NAUSEA PER EMAR. PRN TYLENOL ADMINISTERED @HS FOR C/O 5/10 ABDOMINAL PAIN. PT REPORTS EFFECTIVE. HS B. LR INFUSING ORDERED. TELE:SINUS TACH @103. PT DENIES CP/PRESSURE/SOB. ON RA. PT'S SO BY THE BEDSIDE T/O THE NIGHT. PT TOOK A SHOWER @HS. INDEPENDENT W/I THE HOSPITAL ROOM. PT CONTINUES ON CLEAR LIQUID DIET. BED AT THE LOWEST POSITION, CALL LIGHT W/I REACH. PT IS A/O X4, ANXIOUS AT TIMES. PT IS COOPERATIVE WITH CARE.
[2025-03-24 04:50] VITALS: BP 131/70
[2025-03-24 05:28] LABS: BASOPHILS ABSOLUTE AUTO 0.05 K/mm3 (0.00-0.23); BASOPHILS PERCENT AUTO 1 % (0-2); EOSINOPHILS ABSOLUTE AUTO 0.15 K/mm3 (0.00-0.68); EOSINOPHILS PERCENT AUTO 2 % (0-6); Hematocrit 39.8 % (33.0-51.0); Hemoglobin 13.5 g/dL (11.5-16.0); IMMATURE GRAN ABSOLUTE AUTO 0.03 K/mm3 (0.00-0.10); IMMATURE GRAN PERCENT AUTO 0 % (0-1); LYMPHOCYTES ABSOLUTE AUTO 4.27 K/mm3 (0.84-5.20); LYMPHOCYTES PERCENT AUTO 42 % (21-46); MONOCYTES ABSOLUTE AUTO 0.73 K/mm3 (0.16-1.47); MONOCYTES PERCENT AUTO 7 % (4-13); Mean Corpuscular HGB 28.8 pg (26.0-34.0); Mean Corpuscular HGB Conc 33.9 g/dL (31.5-36.5); Mean Corpuscular Volume 85 fL (80-100); Mean Platelet Volume 9.4 fL (9.1-12.4); NEUTROPHILS ABSOLUTE AUTO 5.01 K/mm3 (1.96-9.15); NEUTROPHILS PERCENT AUTO 49 % (41-73); Platelet Count 209 K/mm3 (150-400); RDW Coefficient Variation 13.4 % (11.7-14.2); RDW Standard Deviation 41.3 fL (35.1-46.3); Red Blood Cell Count 4.68 M/mm3 (3.80-5.20); White Blood Cell Count 10.24 K/mm3 (4.00-11.30)
[2025-03-24 05:50] LABS: Calcium, Blood 8.4 mg/dL (8.5-10.1); Creatinine, Blood 0.52 mg/dL (0.40-1.00); Potassium, Blood 3.2 mmol/L (3.5-5.5)
[2025-03-24 07:06] VITALS: BP 118/72
[2025-03-24] MEDS ORDERED: Potassium Chloride 20 MEQ TabCR PO ONE (09:00)
[2025-03-24 12:04] VITALS: BP 113/64
[2025-03-24 16:17] VITALS: BP 148/79
--- NOTE | 2025-03-24 18:22 | NUR ---
[employer] LEGAL SECRETARY INFORMS THIS RN THAT PT SPOUSE HOLDING NICOTINE VAPE IN HAND WHEN SHE ENTERS TO COMPLETE AFTERNOON VITALS. SPOUSE AND PT INFORMED OF HOSPITAL ZERO TOLERANCE POLICY FOR SMOKING/VAPING ON HOSPITAL GROUNDS. SPOUSE PLACED VAPE IN POCKET. THIS RN SUSPECTS PT AND/OR SPOUSE WOULD CONTINUE TO VAPE DESPITE EDUCATION. RN CONTACTED SECURITY, SECURITY ARRIVED AND ESCORTED SPOUSE TO CRY TO PLACE HIS 2 VAPES IN HIS CAR. PT AND PT SPOUSE INFORMED THAT IF VAPE FOUND IN ROOM AGAIN THAT VISITATION RIGHTS WOULD BE REMOVED. PT AND SPOUSE AGREE TO FOLLOW HOSPITAL POLICY.
--- NOTE | 2025-03-24 18:25 | NUR ---
SHIFT SUMMARY NO ACUTE CHANGES, A/Ox4, ABLE TO MAKE NEEDS KNOWN AND USES CALL LIGHT APPROPRIATELY. PT REPORTS NAUSEA T/O SHIFT, TREATED X3 PER EMAR. NO EMESIS. DIET ADVANCED AND PT TOLERATING INTAKE WELL. LR CONTINUES RUNNING AT 125 ML/HR. ON IV ANTIBIOTICS FOR UTI. TREATED FOR EPIGASTRIC PAIN X2. SEE PREVIOUS NOTE REGARDING VAPE IN ROOM WITH SPOUSE. PT CURRENTLY RESTING PEACEFULLY WITH BED IN LOWEST POSITION AND CALL LIGHT WITHIN REACH.
[2025-03-24 19:49] VITALS: BP 141/85
--- NOTE | 2025-03-25 03:12 | NUR ---
SHIFT SUMMARY NO ACUTE EVENTS DURING THIS SHIFT. PT APPEARS IN BETTER SPIRITS AND DENIES N/V AND PAIN AT HS. LR INFUSING ORDERED. PT'S SO BY THE BEDSIDE T/O THIS SHIFT. PT ATE 100% OF DINNER AND HAD A SNACK @HS. TOLERATING WELL. BED AT THE LOWEST POSITION, CALL LIGHT W/I REACH. PT IS A/O X4, ABLE TO MAKE HER NEEDS KNOWN AND COOPERATIVE WITH CARE. PLAN IS FOR POSSIBLE D/C TODAY.
[2025-03-25 05:05] VITALS: BP 128/68
[2025-03-25 07:53] VITALS: BP 145/89
[2025-03-25 09:03] LABS: BASOPHILS ABSOLUTE AUTO 0.03 K/mm3 (0.00-0.23); BASOPHILS PERCENT AUTO 0 % (0-2); EOSINOPHILS ABSOLUTE AUTO 0.39 K/mm3 (0.00-0.68); EOSINOPHILS PERCENT AUTO 5 % (0-6); Hematocrit 37.7 % (33.0-51.0); Hemoglobin 12.9 g/dL (11.5-16.0); IMMATURE GRAN ABSOLUTE AUTO 0.02 K/mm3 (0.00-0.10); IMMATURE GRAN PERCENT AUTO 0 % (0-1); LYMPHOCYTES ABSOLUTE AUTO 2.84 K/mm3 (0.84-5.20); LYMPHOCYTES PERCENT AUTO 39 % (21-46); MONOCYTES ABSOLUTE AUTO 0.52 K/mm3 (0.16-1.47); MONOCYTES PERCENT AUTO 7 % (4-13); Mean Corpuscular HGB 28.5 pg (26.0-34.0); Mean Corpuscular HGB Conc 34.2 g/dL (31.5-36.5); Mean Corpuscular Volume 83 fL (80-100); Mean Platelet Volume 9.4 fL (9.1-12.4); NEUTROPHILS ABSOLUTE AUTO 3.49 K/mm3 (1.96-9.15); NEUTROPHILS PERCENT AUTO 48 % (41-73); Platelet Count 198 K/mm3 (150-400); RDW Coefficient Variation 13.3 % (11.7-14.2); RDW Standard Deviation 40.7 fL (35.1-46.3); Red Blood Cell Count 4.53 M/mm3 (3.80-5.20); White Blood Cell Count 7.29 K/mm3 (4.00-11.30)
[2025-03-25 09:24] LABS: Bun/Creatinine Ratio 28.1 (12.0-20.0); Calcium, Blood 8.6 mg/dL (8.5-10.1); Creatinine, Blood 0.46 mg/dL (0.40-1.00); Potassium, Blood 3.3 mmol/L (3.5-5.5)
[2025-03-25 11:42] VITALS: BP 146/86
[2025-03-25] MEDS ORDERED: OLAN5 PO (15:27)
[2025-03-25] MEDS ORDERED: CEFP200 PO (15:27)
[2025-03-25] MEDS ORDERED: ACET325 PO (15:28)
[2025-03-25] MEDS ORDERED: Lactobacil 2-S.Thermo-Bifido 1 1 Cap PO SCH (21:00)
== END 2025-03-25 16:21 | disposition home or self-care (01) | DRG 73 ==
LOC: ER 23:08 → MEDS 23:09 → ERHOLD 23:09 → ER 23:09 → MEDS 23:09 → ERHOLD 03-22 11:22 → MEDS 03-22 11:22 → ERHOLD 03-23 15:41 → MEDS 03-23 15:41
PROVIDERS: Internal Medicine; Student in an Organized Health Care Education/Training Program; ADMIT Family Medicine
DX: E11.43 Type 2 diabetes mellitus with diabetic autonomic (poly)neuropathy (principal); E43 Unspecified severe protein-calorie malnutrition; N39.0 Urinary tract infection, site not specified; R11.2 Nausea with vomiting, unspecified; F12.10 Cannabis abuse, uncomplicated; K31.84 Gastroparesis; F32.A Depression, unspecified; E78.5 Hyperlipidemia, unspecified; K21.9 Gastro-esophageal reflux disease without esophagitis; I10 Essential (primary) hypertension; E86.0 Dehydration; J44.9 Chronic obstructive pulmonary disease, unspecified; F17.290 Nicotine dependence, other tobacco product, uncomplicated; B96.20 Unspecified Escherichia coli [E. coli] as the cause of diseases classified elsewhere; Z88.0 Allergy status to penicillin; Z88.5 Allergy status to narcotic agent; Z79.84 Long term (current) use of oral hypoglycemic drugs; Z79.51 Long term (current) use of inhaled steroids; Z85.72 Personal history of non-Hodgkin lymphomas; Z86.73 Personal history of transient ischemic attack (TIA), and cerebral infarction without residual deficits; Z68.35 Body mass index [BMI] 35.0-35.9, adult
CPT/HCPCS: 36415; 80048; 80053; 81001; 82947; 83036; 83690; 84484; 85025; 87077; 87086; 87186; 93005; 93010; 94640; 94664; 94760; 96372; 96375; 96376; 99285-25; A9270; G0378; J0696; J0780; J1630; J1650; J1815; J2405; J2765; J7050; J7120

== ENCOUNTER → 2025-04-28 | Outpatient (CLI) | payer OTHER ==
[~2025-04-28] MED LIST changes: +ALOGLIPTIN25 M1 PO; +OLAN5 PO; +PREG100 PO
[2025-04-28 12:56] LABS: Source, Urine Clean Catch
[2025-04-28 13:19] LABS: Appearance, Urine Hazy (Clear); Bilirubin, Urine Neg (Neg); Blood, Urine Neg (Neg); Color, Urine Yellow (P-Yellow); Glucose Qualitative, Urine 4+ (Neg); Ketones, Urine Neg (Neg); Leukocyte Esterase, Urine 1+ (Neg); Nitrite, Urine Neg (Neg); Protein, Urine Neg (Neg); Urobilinogen, Urine NORM (Normal)
[2025-04-28 13:36] LABS: Bacteria Few /hpf; Red Blood Cells, Urine Not Seen /hpf (0-2); Squamous Epithelial Cells Few /hpf (Few)
[2025-05-05 06:42] LABS: HPV HIGH RISK BY TMA Not Detected; HPV SOURCE Cervical/Vag
== END | disposition home or self-care (01) ==
LOC: LAB 09:33 → LAB SHORT 09:33
PROVIDERS: Obstetrics & Gynecology
DX: Z01.419 Encounter for gynecological examination (general) (routine) without abnormal findings (principal); R30.0 Dysuria
CPT/HCPCS: 81001; 87086; 87624; G0123